=== PATIENT | female | born 1985 | race Hispanic/Latino ===

== ENCOUNTER 2016-10-08 09:38 | Emergency (ER) | payer SELFPAY ==
[2016-10-08 10:14] VITALS: BP 104/68
[2016-10-08 10:47] LABS: Basophils % (Auto) 0.8 % (0.0-1.8); Hematocrit 34.8 % (30.3-42.9); Hemoglobin 11.4 gm/dl (10.1-14.3); Mean Corpuscular HGB Conc 33 % (30-34); Mean Corpuscular Volume 79 fl (79-97); Platelet Count 421 K/mm3 (140-440); Red Blood Count 4.42 M/mm3 (3.65-5.03); Red Cell Distribution Width 17.6 % (13.2-15.2); White Blood Count 12.6 K/mm3 (4.5-11.0)
[2016-10-08 10:59] LABS: Mean Corpuscular Hemoglobin 26 pg (28-32)
[2016-10-08 11:13] LABS: Alanine Aminotransferase 9 units/L (7-56); Albumin 3.9 g/dL (3.9-5); Albumin/Globulin Ratio 1.3 %; Alkaline Phosphatase 60 units/L (35-129); Anion Gap 20 mmol/L; BUN/Creatinine Ratio 7.14; Bilirubin,Total 0.3 mg/dL (0.1-1.2); Blood Urea Nitrogen 5 mg/dL (7-17); Calcium 6.4 mg/dL (8.4-10.2); Carbon Dioxide 23 mmol/L (22-30); Chloride 102.1 mmol/L (98-107); Glucose 84 mg/dL (65-100); Magnesium 1.9 mg/dL (1.7-2.3); Potassium 4.1 mmol/L (3.6-5.0); Sodium 141 mmol/L (137-145)
[2016-10-08 12:55] LABS: Bilirubin,Urine NEG (Negative); Blood,Urine NEG (Negative); Ketones,Urine TR mg/dL (Negative); Leukocyte Esterase,Urine TR (Negative); Mucus,Urine 3+ /HPF; Nitrite,Urine NEG (Negative); Urobilinogen,Urine < 2.0 mg/dL (<2.0)
--- NOTE | 2016-10-10 15:26 | ED Elopement Review ---
ED Pt Elopement review - Results review Lab results: Laboratory Tests 10/08/16 10/08/16 10/08/16 10:31 10:36 10:36 WBC 12.6 H RBC 4.42 Hgb 11.4 Hct 34.8 MCV 79 MCH 26 L MCHC 33 RDW 17.6 H Plt Count 421 Lymph % (Auto) 18.5 [place] % (Auto) 7.2 Eos % (Auto) 4.0 Baso % (Auto) 0.8 Lymph # 2.3 [place] # 0.9 H Eos # 0.5 H Baso # 0.1 Seg Neutrophils % 69.5 Seg Neutrophils # 8.8 H Sodium 141 Potassium 4.1 Chloride 102.1 Carbon Dioxide 23 Anion Gap 20 BUN 5 L Creatinine 0.7 Estimated GFR > 60 BUN/Creatinine Ratio 7.14 Glucose 84 Calcium 6.4 L Magnesium 1.9 Total Bilirubin 0.3 AST 15 ALT 9 Alkaline Phosphatase 60 Total Protein 7.0 Albumin 3.9 Albumin/Globulin Ratio 1.3 TSH Urine Color Yellow Urine Turbidity Cloudy Urine pH 5.0 Ur Specific [place] 1.021 Urine Protein 30 mg/dl Urine Glucose (UA) Neg Urine Ketones Tr Urine Blood Neg Urine Nitrite Neg Ur Reducing Substances Not Reportable Urine Bilirubin Neg Urine Ictotest Not Reportable Urine Urobilinogen < 2.0 Ur Leukocyte Esterase Tr Urine WBC (Auto) 10.0 H Urine RBC (Auto) 5.0 U Epithel Cells (Auto) 6.0 Urine Mucus 3+ Urine HCG, Qual Negative 10/08/16 10:36 WBC RBC Hgb Hct MCV MCH MCHC RDW Plt Count Lymph % (Auto) [place] % (Auto) Eos % (Auto) Baso % (Auto) Lymph # [place] # Eos # Baso # Seg Neutrophils % Seg Neutrophils # Sodium Potassium Chloride Carbon Dioxide Anion Gap BUN Creatinine Estimated GFR BUN/Creatinine Ratio Glucose Calcium Magnesium Total Bilirubin AST ALT Alkaline Phosphatase Total Protein Albumin Albumin/Globulin Ratio TSH 40.920 H Urine Color Urine Turbidity Urine pH Ur Specific [place] Urine Protein Urine Glucose (UA) Urine Ketones Urine Blood Urine Nitrite Ur Reducing Substances Urine Bilirubin Urine Ictotest Urine Urobilinogen Ur Leukocyte Esterase Urine WBC (Auto) Urine RBC (Auto) U Epithel Cells (Auto) Urine Mucus Urine HCG, Qual - Call Back decision Pt Call Back Decision: Pt to F/U with PMD
== END 2016-10-08 15:40 | disposition left against medical advice (07) ==
LOC: ED 09:38
DX: R42 Dizziness and giddiness (principal); R55 Syncope and collapse; Z87.891 Personal history of nicotine dependence; Z53.21 Procedure and treatment not carried out due to patient leaving prior to being seen by health care provider
CPT/HCPCS: 36415; 80053; 81001; 81025; 83735; 84443; 85025; 93005; 93010

== ENCOUNTER 2016-10-14 00:18 | Emergency (ER) | payer SELFPAY ==
[2016-10-14] MEDS ORDERED: MAGNESIUM SULFATE 2GM/50ML 2 GM/50 ML BAG IV ONE (01:29)
[2016-10-14 01:39] LABS: Basophils % (Auto) 1.4 % (0.0-1.8); Eosinophils % (Auto) 4.2 % (0.0-4.3); Hematocrit 31.6 % (30.3-42.9); Hemoglobin 10.5 gm/dl (10.1-14.3); Mean Corpuscular HGB Conc 33 % (30-34); Mean Corpuscular Hemoglobin 26 pg (28-32); Mean Corpuscular Volume 78 fl (79-97); Platelet Count 453 K/mm3 (140-440); Red Blood Count 4.06 M/mm3 (3.65-5.03); Red Cell Distribution Width 17.3 % (13.2-15.2); White Blood Count 8.1 K/mm3 (4.5-11.0)
[2016-10-14 02:29] LABS: BUN/Creatinine Ratio 6.25; Blood Urea Nitrogen 5 mg/dL (7-17); Carbon Dioxide 25 mmol/L (22-30); Glucose 102 mg/dL (65-100)
[2016-10-14 02:30] LABS: Anion Gap 19 mmol/L; Chloride 97.9 mmol/L (98-107); Potassium 3.6 mmol/L (3.6-5.0); Sodium 138 mmol/L (137-145)
--- NOTE | 2016-10-14 03:05 | Emergency Department Report ---
ED Abdominal Pain HPI - General Chief Complaint: Chest Pain Stated Complaint: RIB PAIN/DIZZINESS/FAINTING Time Seen by Provider: 10/14/16 01:27 Source: patient Mode of arrival: Ambulatory Limitations: No Limitations - History of Present Illness Initial Comments: pt is a 31-year-old female with a history of hypothyroidism who presents to the ER today with multiple complaints of chest pain, left upper quadrant abdominal pain, and general feeling unwell. Patient reports she usually feels this when she has not been taking her Synthroid. Patient has not taking her Synthroid in the weeks due to insurance and lack of primary care. Reports her dose is 200mcg daily. Otherwise no fevers, chills, nausea, vomiting, travel, trauma, or sick contacts - Related Data Home Medications Medication Instructions Recorded Confirmed Last Taken Calcium Carbonate [ Calcium 2 tab PO BID PRN 05/18/16 10/14/16 05/16/16 Elemental 600 mg] Previous Rx's Medication Instructions Recorded Last Taken Type Levothyroxine [Synthroid] 200 mcg PO QDAY #30 tablet 10/14/16 Unknown Rx Allergies Allergy/AdvReac Type Severity Reaction Status Date / Time No Known Allergies Allergy Verified 11/28/15 11:08 ED Review of Systems ROS: Stated complaint: RIB PAIN/DIZZINESS/FAINTING Other details as noted in HPI Comment: All other systems reviewed and negative ED Past Medical Hx - Past Medical History Previous Medical History?: Yes Additional medical history: calcium deficiency, Gall bladder disease, hypothyroidism - Surgical History Past Surgical History?: Yes Additional Surgical History: , Parathyroidectomy THYROIDECTOMY - Social History Smoking Status: Never Smoker Substance Use Type: None - Medications Home Medications: Home Medications Medication Instructions Recorded Confirmed Last Taken Type Calcium Carbonate [ Calcium 2 tab PO BID PRN 05/18/16 10/14/16 05/16/16 History Elemental 600 mg] Levothyroxine [Synthroid] 200 mcg PO QDAY #30 tablet 10/14/16 Unknown Rx ED Physical Exam - General Limitations: No Limitations General appearance: alert, in no apparent distress - Head Head exam: Present: atraumatic, normocephalic - Eye Eye exam: Present: normal appearance - ENT ENT exam: Present: normal exam, mucous membranes moist - Neck Neck exam: Present: normal inspection - Respiratory Respiratory exam: Present: normal lung sounds bilaterally. Absent: respiratory distress, wheezes, rales - Cardiovascular Cardiovascular Exam: Present: regular rate, normal rhythm. Absent: irregular rhythm, systolic murmur, diastolic murmur, rubs, gallop - GI/Abdominal GI/Abdominal exam: Present: soft, tenderness (mild LUQ), normal bowel sounds. Absent: distended, guarding, rebound, rigid, organomegaly, pulsatile mass, hernia - Extremities Exam Extremities exam: Present: normal inspection - Back Exam Back exam: Present: normal inspection - Neurological Exam Neurological exam: Present: alert, oriented X3 - Psychiatric Psychiatric exam: Present: normal affect, normal mood - Skin Skin exam: Present: warm, dry, intact, normal color. Absent: rash ED Course Vital Signs 10/14/16 10/14/16 10/14/16 00:52 03:08 04:19 Temperature 98.7 F 98.6 F Pulse Rate 101 H 72 Respiratory 18 22 16 Rate Blood Pressure 117/73 Blood Pressure 98/64 [Left] O2 Sat by Pulse 100 96 97 Oximetry ED Medical Decision Making - Lab Data Result diagrams: 10/14/16 01:25 10/14/16 01:25 - EKG Data -: EKG Interpreted by Me (00:44) EKG shows normal: sinus rhythm, axis (normal axis), intervals (QTC 531 ms), QRS complexes (no LVH), ST-T waves (no ST changes) Rate: normal (E 7 bpm) - Medical Decision Making Given patient's QTc 521 ms, ordered magnesium sulfate 2 g IV piggyback 1 dose. Patient denies any medications or drug use Critical care attestation.: If time is entered above; I have spent that time in minutes in the direct care of this critically ill patient, excluding procedure time. ED Disposition Clinical Impression: Hypothyroidism, Weakness, Hypocalcemia Disposition: DISCHARGED TO HOME OR SELFCARE Is pt being admited?: No Condition: Stable Instructions: Hypothyroidism (ED), Hypocalcemia (ED), Weakness (ED) Prescriptions: Levothyroxine [Synthroid] 200 mcg PO QDAY #30 tablet Referrals: PRIMARY CARE, [Primary Care Provider] - 3-5 Days
[2016-10-14] MEDS ORDERED: CALCIUM GLUCONATE 2,000 MG in NACL 0.9% 100 ML IV ONE (04:00)
[2016-10-14 07:13] VITALS: BP 98/66
== END 2016-10-14 07:13 | disposition home or self-care (01) ==
LOC: ED 00:18
DX: E03.9 Hypothyroidism, unspecified (principal); R53.1 Weakness; E83.51 Hypocalcemia; Z90.89 Acquired absence of other organs
CPT/HCPCS: 36415; 80048; 81025; 83735; 84439; 84443; 84484; 85025; 85379; 93005; 93010; 96365; 96367; 99284; J0610; J3475

== ENCOUNTER 2016-11-11 01:42 | Emergency (ER) | payer SELFPAY ==
[2016-11-11 02:51] LABS: Basophils % (Auto) 0.8 % (0.0-1.8); Eosinophils % (Auto) 2.1 % (0.0-4.3); Hematocrit 33.4 % (30.3-42.9); Hemoglobin 10.9 gm/dl (10.1-14.3); Mean Corpuscular HGB Conc 33 % (30-34); Mean Corpuscular Volume 78 fl (79-97); Platelet Count 597 K/mm3 (140-440); Red Blood Count 4.31 M/mm3 (3.65-5.03); White Blood Count 13.5 K/mm3 (4.5-11.0)
[2016-11-11 03:09] LABS: Alanine Aminotransferase 11 units/L (7-56); Albumin 3.9 g/dL (3.9-5); Albumin/Globulin Ratio 1.2 %; Alkaline Phosphatase 83 units/L (35-129); Anion Gap 24 mmol/L; Blood Urea Nitrogen 6 mg/dL (7-17); Carbon Dioxide 22 mmol/L (22-30); Chloride 97.3 mmol/L (98-107); Glucose 95 mg/dL (65-100); Potassium 3.6 mmol/L (3.6-5.0); Sodium 140 mmol/L (137-145); Total Protein 7.2 g/dL (6.3-8.2)
[2016-11-11 03:10] LABS: Mean Corpuscular Hemoglobin 25 pg (28-32)
[2016-11-11 03:19] LABS: Calcium 5.9 mg/dL (8.4-10.2)
[2016-11-11 04:48] LABS: Albumin 3.8 g/dL (3.9-5); Albumin/Globulin Ratio 1.1 %; Bilirubin,Direct 0.2 mg/dL (0-0.2); Bilirubin,Total 0.2 mg/dL (0.1-1.2); Total Protein 7.3 g/dL (6.3-8.2)
[2016-11-11 05:17] LABS: Bilirubin,Urine Negative (Negative); Blood,Urine Large (Negative); Ketones,Urine Negative (Negative); Leukocyte Esterase,Urine Large (Negative); Nitrite,Urine Negative (Negative); Protein,Urine <15 mg/dL mg/dL (Negative); Urobilinogen,Urine < 0.2 mg/dL (<2.0)
[2016-11-11 05:18] LABS: Bacteria,Urine 1+ /HPF (Negative)
[2016-11-11] MEDS ORDERED: NORCO 5/325 PO ONE (06:56)
--- NOTE | 2016-11-11 07:00 | Emergency Department Report ---
HPI - General Chief Complaint: Abdominal Pain Time Seen by Provider: 11/11/16 06:14 - HPI HPI: 31-year-old female presents to the emergency department, dropped off by a friend, with complaint of a 2 day history of left lower quadrant sharp abdominal pain. It is intermittent and the intensity waxes and wanes. Currently it is about 5 out of 10 in intensity. It is associated with some nausea without vomiting and she denies any fever. She does not take anything for symptoms prior to presentation. She does not have any primary care doctor. She denies any dysuria, vaginal bleeding or discharge. She has a past medical history of hypothyroidism secondary to thyroidectomy and parathyroidectomy and therefore a subsequent calcium deficiency. No recent travel or sick contacts at home. There are no known aggravating or alleviating factors. ED Past Medical Hx - Past Medical History Previous Medical History?: Yes Additional medical history: calcium deficiency, Gall bladder disease, hypothyroidism - Surgical History Past Surgical History?: Yes Additional Surgical History: , Parathyroidectomy THYROIDECTOMY - Social History Smoking Status: Never Smoker Substance Use Type: None - Medications Home Medications: Home Medications Medication Instructions Recorded Confirmed Last Taken Type Calcium Carbonate [ Calcium 2 tab PO BID PRN 05/18/16 11/11/16 05/16/16 History Elemental 600 mg] Levothyroxine [Synthroid] 200 mcg PO QDAY #30 tablet 10/14/16 11/11/16 Unknown Rx HYDROcodone/APAP 5-325 [[place] 1 each PO Q6HR PRN #10 tablet 11/11/16 Unknown Rx 5/325] ED Review of Systems ROS: Stated complaint: DIZZINESS/LFT SIDE PAIN/NAUSEA Other details as noted in HPI Comment: All other systems reviewed and negative Constitutional: denies: chills, fever Eyes: denies: eye pain, eye discharge, vision change ENT: denies: ear pain, throat pain Respiratory: denies: cough, shortness of breath, wheezing Cardiovascular: denies: chest pain, palpitations Gastrointestinal: abdominal pain, nausea. denies: vomiting, diarrhea Genitourinary: denies: urgency, dysuria, discharge Musculoskeletal: denies: back pain, joint swelling, arthralgia Skin: denies: rash, lesions Neurological: denies: headache, weakness, paresthesias Physical Exam - Physical Exam Vital Signs: Vital Signs 11/11/16 11/11/16 11/11/16 01:45 01:50 04:44 Temperature 98.4 F 98.4 F Pulse Rate 108 H 108 H 87 Respiratory 20 20 21 Rate Blood Pressure 107/79 Blood Pressure 107/79 [Right] O2 Sat by Pulse 97 97 99 Oximetry 11/11/16 11/11/16 11/11/16 05:00 05:30 06:00 Temperature Pulse Rate 87 90 81 Respiratory 20 15 18 Rate Blood Pressure 109/67 100/62 104/51 Blood Pressure [Right] O2 Sat by Pulse 99 97 96 Oximetry Physical Exam: GENERAL: The patient is well-developed well-nourished. HEENT: Normocephalic. Atraumatic. Extraocular motions are intact. Patient has moist mucous membranes. Pupils equal reactive to light bilaterally. NECK: Supple. Trachea is midline. CHEST/LUNGS: Clear to auscultation. There is no respiratory distress noted. HEART/CARDIOVASCULAR: Regular. There is no tachycardia. There is no gallop rub or murmur. ABDOMEN: Abdomen is soft. There is left lower quadrant tenderness to palpation. No guarding or rebound tenderness. Patient has normal bowel sounds. There is no abdominal distention. SKIN: There is no rash. There is no edema. There is no diaphoresis. NEURO: The patient is awake, alert, and oriented. The patient is cooperative. The patient has no focal neurologic deficits. The patient has normal speech. MUSCULOSKELETAL: There is no tenderness or deformity. There is no limitation range of motion. There is no evidence of acute injury. ED Course Vital Signs 11/11/16 11/11/16 11/11/16 01:45 01:50 04:44 Temperature 98.4 F 98.4 F Pulse Rate 108 H 108 H 87 Respiratory 20 20 21 Rate Blood Pressure 107/79 Blood Pressure 107/79 [Right] O2 Sat by Pulse 97 97 99 Oximetry 11/11/16 11/11/16 11/11/16 05:00 05:30 06:00 Temperature Pulse Rate 87 90 81 Respiratory 20 15 18 Rate Blood Pressure 109/67 100/62 104/51 Blood Pressure [Right] O2 Sat by Pulse 99 97 96 Oximetry - Pulse Oximetry Interpretation Digit-Finger Initial Pulse Oximetry Readin O2 Sat by Pulse Oximetry: 99 Actions Taken: none ED Medical Decision Making - Lab Data Result diagrams: 11/11/16 02:18 11/11/16 02:18 - Radiology Data Radiology results: report reviewed, image reviewed interpreted by me: Abdominal x-ray shows nonspecific nonobstructive bowel gas. Pelvic ultrasound does not show any ovarian torsion or any significant abnormalities. CT of the abdomen and pelvis with IV contrast is a normal examination without any acute abnormalities. - Medical Decision Making 31-year-old female presents with 2 days of some lower left quadrant abdominal pain and while in the emergency department she complains that starting to move towards the pelvis. Labs are unremarkable do not show any etiology of the patient's symptoms. She is not . X-ray does not show any acute process. She had a transvaginal/pelvic ultrasound with Doppler and a CT of the abdomen and pelvis with IV contrast and neither showed any acute process. Vital signs stable throughout her ED course. She was given referrals for primary care and [facility]. She will return to the ER with any worsening of her symptoms or any acute distress. - Differential Diagnosis fibroids, torsion, , UTI, colitis Critical Care Time: No Critical care attestation.: If time is entered above; I have spent that time in minutes in the direct care of this critically ill patient, excluding procedure time. ED Disposition Clinical Impression: Pelvic pain, Hypocalcemia Abdominal pain Qualifiers: Abdominal location: left lower quadrant Qualified Code(s): R10.32 - Left lower quadrant pain Disposition: DISCHARGED TO HOME OR SELFCARE Is pt being admited?: No Condition: Stable Instructions: Hypocalcemia (ED), Abdominal Pain (ED) Additional Instructions: Please follow-up with a primary care doctor and [facility] in the near future. Return to the emergency department with any worsening of your symptoms or any acute distress. You've been prescribed a medication that is sedating. Therefore this medication cannot be mixed with alcohol, or taken prior to driving, working, or being responsible for children. Prescriptions: HYDROcodone/APAP 5-325 [[place] 5/325] 1 each PO Q6HR PRN #10 tablet PRN Reason: Pain Referrals: PRIMARY CAREMD [Primary Care Provider] - 3-5 Days [facility] [Outside] - 3-5 Days [facility] [Provider Group] - 3-5 Days [facility] [Provider Group] - 3-5 Days Time of Disposition: 11:26
[2016-11-11] MEDS ORDERED: NACL ONE (08:03)
--- NOTE | 2016-11-11 08:15 | XRay Report ---
ABDOMEN RADIOGRAPHS INDICATION: Abdominal, bilateral flank pain for 3 days, more on the left. Nausea. COMPARISON: None similar. FINDINGS: Frontal abdominal radiographs demonstrate nonobstructive bowel gas pattern. Ingested contents/debris in the stomach. No focal suspicious calcifications, pneumatosis or pneumoperitoneum. Few small pelvic phleboliths. Clear visualized lung bases. Mild degenerative lumbar spurring. CONCLUSION: No acute abdominal radiographic abnormality, as described. Thank you for the opportunity to participate in this patient's care.
--- NOTE | 2016-11-11 08:50 | Cat Scan Report ---
CT ABDOMEN AND PELVIS WITH CONTRAST INDICATION: Flank, LLQ pain. COMPARISON: Correlated to relevant images from 05/18/2016 and 02/26/2015 CTs. FINDINGS: Abdomen and pelvis CT performed following intravenous administration of 100 cc of Omnipaque 300. LUNG BASES: Nonspecific distal esophageal wall prominence/thickening, not excluded for gastroesophageal reflux and/or hiatal hernia, amongst others. ABDOMEN: Similar to prior exams, mild pericholecystic fluid/edema-like hypodensity again noted. Tiny calcifications within the gallbladder as on axial series 2, images 97-104 not excluded for minimal cholelithiasis and/or sludge. Indeterminate 6 mm peripheral right hepatic hypodensity towards the dome posteriorly on axial image 55. Liver, spleen, pancreas, adrenals, nonaneurysmal abdominal aorta, IVC and kidneys otherwise appear within normal limits bilaterally without hydronephrosis, ascites or size significant adenopathy. Nonopacified GI tract evaluation limited, though grossly nonobstructive. Normal appendix. Mild ascending colon stool. PELVIS: Uterus, adnexa/ovaries, urinary bladder and the rectosigmoid demonstrate physiologic CT appearance. No free fluid or significant adenopathy. Mild bony degenerative changes, including lower thoracic degenerative spurring and few endplate Schmorl's nodes. CONCLUSION: No CT explanation for patient's left sided pain with few incidental findings, including gallbladder CT appearance unchanged dating back to February 2015 with subtle cholelithiasis/gallbladder sludge suspected, as described. Ultrasound may help further confirm, if warranted. Thank you for the opportunity to participate in this patient's care.
[2016-11-11 09:35] VITALS: BP 108/70
--- NOTE | 2016-11-11 11:09 | Ultrasound Report ---
ULTRASOUND PELVIS DUPLEX DOPPLER COMPLETE - TRANSABDOMINAL AND TRANSVAGINAL: INDICATION: Pelvic/LLQ pain for 2 days. COMPARISON: CT from earlier today. FINDINGS: Transabdominal and transvaginal pelvic sonography with Doppler demonstrates a normal, 9.9 x 4.5 x 4.5 cm anteverted uterus. Endometrial thickness estimated at 3 mm, endovaginal image 4. Few small nabothian cysts. No significant free fluid. Both ovaries demonstrate preserved blood flow. Unremarkable right ovary measures 2.4 x 1.6 x 2.3 cm. Left ovary is 4.1 x 1.6 x 3 cm with small follicular cysts, larger approximately 1.6 x 1 cm, endovaginal image 26. CONCLUSION: Physiologic pelvic sonogram, as described. Thank you for the opportunity to participate in this patient's care.
== END 2016-11-11 12:01 | disposition home or self-care (01) ==
LOC: ED 01:42
DX: R10.2 Pelvic and perineal pain (principal); R10.32 Left lower quadrant pain; E83.51 Hypocalcemia; E03.9 Hypothyroidism, unspecified; Z90.89 Acquired absence of other organs
CPT/HCPCS: 36415; 74020; 74177; 76830; 80053; 80074; 81001; 81025; 83735; 85025; 93975; 99285; Q9967

== ENCOUNTER 2017-01-05 17:45 | Emergency (ER) | payer BC ==
[2017-01-05 17:57] VITALS: BP 130/79
[2017-01-05 18:25] LABS: Basophils % (Auto) 0.8 % (0.0-1.8); Eosinophils % (Auto) 3.4 % (0.0-4.3); Hematocrit 34.7 % (30.3-42.9); Hemoglobin 10.9 gm/dl (10.1-14.3); Mean Corpuscular HGB Conc 32 % (30-34); Mean Corpuscular Volume 75 fl (79-97); Platelet Count 482 K/mm3 (140-440); Red Blood Count 4.65 M/mm3 (3.65-5.03); Red Cell Distribution Width 17.6 % (13.2-15.2); White Blood Count 13.1 K/mm3 (4.5-11.0)
[2017-01-05 18:31] LABS: Mean Corpuscular Hemoglobin 24 pg (28-32)
[2017-01-05 18:35] LABS: Alanine Aminotransferase 9 units/L (7-56); Albumin 3.9 g/dL (3.9-5); Albumin/Globulin Ratio 1.3 %; Alkaline Phosphatase 77 units/L (35-129); Anion Gap 20 mmol/L; BUN/Creatinine Ratio 7.14; Blood Urea Nitrogen 5 mg/dL (7-17); Calcium 6.7 mg/dL (8.4-10.2); Carbon Dioxide 24 mmol/L (22-30); Chloride 98.5 mmol/L (98-107); Glucose 74 mg/dL (65-100); Lipase 43 units/L (13-60); Potassium 4.2 mmol/L (3.6-5.0); Sodium 138 mmol/L (137-145)
[2017-01-05 19:45] LABS: Bilirubin,Urine NEG (Negative); Blood,Urine LG (Negative); Ketones,Urine TR mg/dL (Negative); Leukocyte Esterase,Urine SM (Negative); Mucus,Urine FEW /HPF; Nitrite,Urine NEG (Negative); Urobilinogen,Urine < 2.0 mg/dL (<2.0)
--- NOTE | 2017-01-05 22:16 | Emergency Department Report ---
HPI - General Chief Complaint: Urogenital-Female Time Seen by Provider: 01/05/17 21:47 - HPI HPI: Patient is a 31-year-old female presents ED complaining of low right-sided pelvic pain and some vaginal itching for the past 2 days. She states she has a history of kidney stones and thinks this might be related. Patient states she has unprotected intercourse about a week ago and is unsure if she got exposed to an STD. Patient states she got a Monistat today [id number] use it. Patient states vaginal itchiness as well as outside. She admits burning with urination. She states normal menstrual cycles and states she started spotting today and is unsure if it's her menstrual cycle She denies fevers/chills/nausea/vomiting/shortness of breath/chest pain. ED Past Medical Hx - Past Medical History Previous Medical History?: Yes Additional medical history: calcium deficiency, Gall bladder disease, hypothyroidism - Surgical History Past Surgical History?: Yes Additional Surgical History: , Parathyroidectomy THYROIDECTOMY - Social History Smoking Status: Current Every Day Smoker Substance Use Type: Prescribed - Medications Home Medications: Home Medications Medication Instructions Recorded Confirmed Last Taken Type Calcium Carbonate [ Calcium 2 tab PO BID PRN 05/18/16 11/11/16 05/16/16 History Elemental 600 mg] HYDROcodone/APAP 5-325 [[place] 1 each PO Q6HR PRN #10 tablet 11/11/16 Unknown Rx 5/325] Ibuprofen [Motrin 800 MG tab] 800 mg PO QHS #30 tablet 01/05/17 Unknown Rx Levothyroxine [Synthroid] 200 mcg PO QDAY #30 tablet 01/05/17 Unknown Rx Sulfamethoxazole/Trimethoprim 1 each PO BID #8 tablet 01/05/17 Unknown Rx [Bactrim DS TAB] metroNIDAZOLE [Flagyl TAB] 500 mg PO ONCE #4 tab 01/05/17 Unknown Rx ED Review of Systems ROS: Stated complaint: POSS BLADDER INFECT/KIDNEY STONE Other details as noted in HPI Constitutional: denies: chills, fever Eyes: denies: eye pain, eye discharge, vision change ENT: denies: ear pain, throat pain Respiratory: denies: cough, shortness of breath, wheezing Cardiovascular: denies: chest pain, palpitations Endocrine: no symptoms reported Gastrointestinal: denies: abdominal pain, nausea, diarrhea Genitourinary: denies: urgency, dysuria, discharge Musculoskeletal: denies: back pain, joint swelling, arthralgia Skin: denies: rash, lesions Neurological: denies: headache, weakness, paresthesias Psychiatric: denies: anxiety, depression Hematological/Lymphatic: denies: easy bleeding, easy bruising Physical Exam - Physical Exam Vital Signs: Vital Signs 01/05/17 17:51 Temperature 99.1 F Pulse Rate 87 Respiratory 20 Rate Blood Pressure 130/79 O2 Sat by Pulse 98 Oximetry Physical Exam: GENERAL: Alert and oriented x3, no apparent distress, Normal Gait, atraumatic. HEAD: Head is normocephalic and a-traumatic. EYES: Extra ocular muscles are intact. Pupils are equal, round, and reactive to light and accommodation. EARS: symetrical, atraumatic, non tender, ear canal clear and moderate cerumen, tympanic membrance non inflamed. gross auditory nml bilaterally. LUNGS: Symetrical with respiration, No wheezing, no rales or crackles, CTAB. HEART: S1, S2 present, regular rate and rhythm without murmur, no rubs, no gallops. Non tender to palpation ABDOMEN: No organomegaly was noted,Positive bowel sounds, soft, and non- distended. . Nontender to palpation on all Quadrants, NO CVA tenderness. GENITOURINARY: External genitalia without erythema, exudate or discharge. Vaginal vault is with moderate dark red bloody discharge consistent with dementia.. Cervix is of normal color without lesion. Cervical os is closed. Uterus is noted to be of normal size and nontender. No cervical motion tenderness. No masses are palpated. The adnexa are without masses or tenderness. Cultures collected for wet prep and G/C SKIN: Warm and dry, No lesions, No ulceration or induration present. ED Course Vital Signs 01/05/17 17:51 Temperature 99.1 F Pulse Rate 87 Respiratory 20 Rate Blood Pressure 130/79 O2 Sat by Pulse 98 Oximetry ED Medical Decision Making - Lab Data Result diagrams: 01/05/17 18:04 01/05/17 18:04 - Medical Decision Making 31-year-old female presents with STD exposure/UTI. ED course: Urinalysis and gonorrhea and Chlamydia cultures obtained. Urinalysis positive for leukorrhea Patient received 250 mg of Rocephin, azithromycin 1 g, Patient was sent home on Flagyl 2 g. Trial of Bactrim for 3 days for urinary tract infection Discussed with patient possible STD due to exposure. Discussed with patient findings and treatment Discussed prophylaxis treatment patient is to abstain from sex 7-10 days as treatment. Discussed patient partner knowledge and treatment. Discussed the follow-up with the health department for further STD testing. Patient's alert and oriented times 3. Vital signs are normal patient is in no acute Distress Critical care attestation.: If time is entered above; I have spent that time in minutes in the direct care of this critically ill patient, excluding procedure time. ED Disposition Clinical Impression: Exposure to STD UTI (urinary tract infection) Qualifiers: Urinary tract infection type: acute cystitis Hematuria presence: with hematuria Qualified Code(s): N30.01 - Acute cystitis with hematuria Disposition: TO HOME OR SELFCARE Is pt being admited?: No Does the pt Need Aspirin: No Condition: Stable Instructions: Cervicitis (ED), Sexually Transmitted Diseases (ED), Safe Sex (ED ), Urinary Tract Infection in Women (ED) Prescriptions: Ibuprofen [Motrin 800 MG tab] 800 mg PO QHS #30 tablet Levothyroxine [Synthroid] 200 mcg PO QDAY #30 tablet metroNIDAZOLE [Flagyl TAB] 500 mg PO ONCE #4 tab Sulfamethoxazole/Trimethoprim [Bactrim DS TAB] 1 each PO BID #8 tablet Referrals: PRIMARY MD ROSI [Primary Care Provider] - 3-5 Days CHANDLER CHAMPION MD [Referring] - 3-5 Days [facility] [Outside] - 3-5 Days [facility] [Outside] - 3-5 Days [facility] [Outside] - 3-5 Days Forms: Work/School Release Form(ED)
[2017-01-05] MEDS ORDERED: XYLOCAINE 1% MPF 5 mL INFILTRATI ONE (23:11)
[2017-01-05] MEDS ORDERED: ZITHROMAX PO ONE (23:11)
[2017-01-05] MEDS ORDERED: MOTRIN PO ONE (23:11)
[2017-01-05] MEDS ORDERED: ROCEPHIN IM ONE (23:11)
== END 2017-01-06 00:11 | disposition home or self-care (01) ==
LOC: ED 17:45
DX: N39.0 Urinary tract infection, site not specified (principal); E03.9 Hypothyroidism, unspecified; F17.210 Nicotine dependence, cigarettes, uncomplicated; Z20.2 Contact with and (suspected) exposure to infections with a predominantly sexual mode of transmission
CPT/HCPCS: 36415; 80053; 81001; 81025; 83690; 85025; 87210; 87591; 96372; 99283; J0696

== ENCOUNTER 2017-01-13 01:22 | Emergency (ER) | payer BC ==
[2017-01-13 05:43] VITALS: BP 120/78
[2017-01-13 07:06] LABS: Basophils % (Auto) 1.2 % (0.0-1.8); Eosinophils % (Auto) 6.4 % (0.0-4.3); Hemoglobin 11.6 gm/dl (10.1-14.3); Mean Corpuscular HGB Conc 32 % (30-34); Mean Corpuscular Volume 75 fl (79-97); Platelet Count 519 K/mm3 (140-440); Red Blood Count 4.82 M/mm3 (3.65-5.03); Red Cell Distribution Width 18.8 % (13.2-15.2); White Blood Count 7.6 K/mm3 (4.5-11.0)
[2017-01-13 07:07] LABS: Mean Corpuscular Hemoglobin 24 pg (28-32)
[2017-01-13 07:26] LABS: Alanine Aminotransferase 10 units/L (7-56); Albumin 4.3 g/dL (3.9-5); Albumin/Globulin Ratio 1.2 %; Alkaline Phosphatase 79 units/L (35-129); Anion Gap 17 mmol/L; BUN/Creatinine Ratio 11.42; Bilirubin,Total < 0.20 mg/dL (0.1-1.2); Blood Urea Nitrogen 8 mg/dL (7-17); Calcium 7.3 mg/dL (8.4-10.2); Carbon Dioxide 27 mmol/L (22-30); Glucose 91 mg/dL (65-100); Lipase 74 units/L (13-60); Potassium 4.3 mmol/L (3.6-5.0); Sodium 137 mmol/L (137-145)
== END 2017-01-13 06:43 | disposition left against medical advice (07) ==
LOC: ED 01:22
DX: R10.9 Unspecified abdominal pain (principal); Z53.21 Procedure and treatment not carried out due to patient leaving prior to being seen by health care provider
CPT/HCPCS: 36415; 80053; 83690; 84703; 85025

== ENCOUNTER 2017-08-16 22:39 | Emergency (ER) | payer BC ==
[2017-08-16 22:57] VITALS: BP 129/88
== END 2017-08-17 06:02 | disposition left against medical advice (07) ==
LOC: ED 22:39
DX: R42 Dizziness and giddiness (principal); Z53.21 Procedure and treatment not carried out due to patient leaving prior to being seen by health care provider

== ENCOUNTER 2017-11-09 09:17 | Emergency (ER) | payer BC ==
[2017-11-09] MEDS ORDERED: ASPIRIN PO ONE (09:40)
[2017-11-09 10:05] LABS: Basophils # (Auto) 0.1 K/mm3 (0.0-0.1); Basophils % (Auto) 1.7 % (0.0-1.8); Eosinophils # (Auto) 0.3 K/mm3 (0.0-0.4); Eosinophils % (Auto) 3.7 % (0.0-4.3); Hematocrit 32.9 % (30.3-42.9); Hemoglobin 11.1 gm/dl (10.1-14.3); Lymphocytes # (Auto) 2.5 K/mm3 (1.2-5.4); Lymphocytes % (Auto) 34.8 % (13.4-35.0); Mean Corpuscular HGB Conc 34 % (30-34); Mean Corpuscular Hemoglobin 26 pg (28-32); Mean Corpuscular Volume 77 fl (79-97); Monocytes # (Auto) 0.6 K/mm3 (0.0-0.8); Platelet Count 407 K/mm3 (140-440); Red Blood Count 4.25 M/mm3 (3.65-5.03); Red Cell Distribution Width 16.9 % (13.2-15.2)
[2017-11-09 10:20] LABS: BUN/Creatinine Ratio 7; Blood Urea Nitrogen 6 mg/dL (7-17); Calcium 6.5 mg/dL (8.4-10.2); Hemolysis Index 4
--- NOTE | 2017-11-09 13:49 | Emergency Department Report ---
ED General Adult HPI - General Chief complaint: Chest Pain Stated complaint: CHEST PAIN Time Seen by Provider: 11/09/17 13:23 Source: patient Mode of arrival: Ambulatory Limitations: No Limitations - History of Present Illness Initial comments: Patient presents to emergency department for left sided chest pain for the last 2 days. Patient describes the pain is all in nature with no radiation. Patient believes that her pain is secondary to her not having a Synthroid. Patient denies anything making the pain better or worse. Patient states last time she had a Synthroid was approximately 2 months ago but then she tells me she's been taking a friend's Synthroid. -: Sudden Location: chest Radiation: non-radiation Severity scale (0 -10): 2 Quality: aching Consistency: constant Improves with: none Worsens with: none Associated Symptoms: denies other symptoms Treatments Prior to Arrival: none - Related Data Previous Rx's Medication Instructions Recorded Last Taken Type Calcium Carbonate [Calcium] 3 tab PO TID #300 tablet 01/23/17 Unknown Rx Famotidine [Pepcid] 20 mg PO BID #60 tablet 01/23/17 Unknown Rx HYDROcodone/APAP 5-325 [[place] 1 each PO Q6HR PRN #20 tablet 01/23/17 Unknown Rx 5-325 mg TAB] Levothyroxine Sodium [Synthroid] 200 mcg PO QDAY #30 tablet 01/23/17 Unknown Rx Levothyroxine Sodium [Synthroid] 125 mcg PO DAILY #7 tablet 11/09/17 Unknown Rx Allergies Allergy/AdvReac Type Severity Reaction Status Date / Time No Known Allergies Allergy Verified 11/28/15 11:08 ED Review of Systems ROS: Stated complaint: CHEST PAIN Other details as noted in HPI Comment: All other systems reviewed and negative Constitutional: denies: chills, fever Eyes: denies: eye pain, eye discharge, vision change ENT: denies: ear pain, throat pain Respiratory: denies: cough, shortness of breath, wheezing Cardiovascular: denies: chest pain, palpitations Endocrine: no symptoms reported Gastrointestinal: denies: abdominal pain, nausea, diarrhea Genitourinary: denies: urgency, dysuria, discharge Musculoskeletal: denies: back pain, joint swelling, arthralgia Skin: denies: rash, lesions Neurological: denies: headache, weakness, paresthesias Psychiatric: denies: anxiety, depression Hematological/Lymphatic: denies: easy bleeding, easy bruising ED Past Medical Hx - Past Medical History Previous Medical History?: Yes Hx Congestive Heart Failure: No Hx Diabetes: No Hx Asthma: No Hx COPD: No Additional medical history: calcium deficiency, Gall bladder disease, hypothyroidism - Surgical History Past Surgical History?: Yes Additional Surgical History: , Parathyroidectomy THYROIDECTOMY - Social History Smoking Status: Former Smoker Substance Use Type: Prescribed - Medications Home Medications: Home Medications Medication Instructions Recorded Confirmed Last Taken Type Calcium Carbonate [Calcium] 3 tab PO TID #300 tablet 01/23/17 Unknown Rx Famotidine [Pepcid] 20 mg PO BID #60 tablet 01/23/17 Unknown Rx HYDROcodone/APAP 5-325 [[place] 1 each PO Q6HR PRN #20 tablet 01/23/17 Unknown Rx 5-325 mg TAB] Levothyroxine Sodium [Synthroid] 200 mcg PO QDAY #30 tablet 01/23/17 Unknown Rx Levothyroxine Sodium [Synthroid] 125 mcg PO DAILY #7 tablet 11/09/17 Unknown Rx ED Physical Exam - General Limitations: No Limitations General appearance: alert, in no apparent distress - Head Head exam: Present: atraumatic, normocephalic - Eye Eye exam: Present: normal appearance - ENT ENT exam: Present: mucous membranes moist - Neck Neck exam: Present: normal inspection - Respiratory Respiratory exam: Present: normal lung sounds bilaterally. Absent: respiratory distress - Cardiovascular Cardiovascular Exam: Present: regular rate, normal rhythm. Absent: systolic murmur, diastolic murmur, rubs, gallop - GI/Abdominal GI/Abdominal exam: Present: soft, normal bowel sounds - Extremities Exam Extremities exam: Present: normal inspection - Back Exam Back exam: Present: normal inspection - Neurological Exam Neurological exam: Present: alert, oriented X3, CN II-XII intact. Absent: motor sensory deficit - Psychiatric Psychiatric exam: Present: normal affect, normal mood - Skin Skin exam: Present: warm, dry, intact, normal color. Absent: rash ED Course Vital Signs 11/09/17 09:36 Temperature 98.8 F Pulse Rate 86 Respiratory 20 Rate Blood Pressure 118/79 O2 Sat by Pulse 99 Oximetry ED Medical Decision Making - Lab Data Result diagrams: 11/09/17 09:50 11/09/17 09:50 - EKG Data -: EKG Interpreted by Fl EKG shows normal: sinus rhythm Rate: normal - EKG Data Interpretation: no acute changes - Medical Decision Making Discussed results with patient and need for primary care follow-up. Patient will be given a prescription for Synthroid for 7 days. Critical care attestation.: If time is entered above; I have spent that time in minutes in the direct care of this critically ill patient, excluding procedure time. ED Disposition Clinical Impression: Nonspecific chest pain, Hypothyroidism Disposition: TO HOME OR SELFCARE Is pt being admited?: No Does the pt Need Aspirin: No Condition: Stable Instructions: Chest Pain (ED), Hypothyroidism (ED), Noncardiac Chest Pain (ED) Additional Instructions: Return if worse Prescriptions: Levothyroxine Sodium [Synthroid] 125 mcg PO DAILY #7 tablet Referrals: PRIMARY CARE, [Primary Care Provider] - 3-5 Days [facility] [Outside] - 3-5 Days [facility] [Outside] - 3-5 Days [facility] [Provider Group] - 3-5 Days Time of Disposition: 13:46
[2017-11-09 13:55] VITALS: BP 114/77
== END 2017-11-09 14:04 | disposition home or self-care (01) ==
LOC: ED 09:17
DX: R07.89 Other chest pain (principal); E03.9 Hypothyroidism, unspecified; Z87.891 Personal history of nicotine dependence
CPT/HCPCS: 36415; 80048; 84484; 85025; 93005; 93010; 99284

== ENCOUNTER 2017-12-10 06:55 | Emergency (ER) | payer BC ==
[2017-12-10 08:15] LABS: Basophils # (Auto) 0.1 K/mm3 (0.0-0.1); Basophils % (Auto) 1.5 % (0.0-1.8); Eosinophils # (Auto) 0.2 K/mm3 (0.0-0.4); Hematocrit 34.1 % (30.3-42.9); Hemoglobin 11.2 gm/dl (10.1-14.3); Lymphocytes # (Auto) 1.9 K/mm3 (1.2-5.4); Lymphocytes % (Auto) 31.4 % (13.4-35.0); Mean Corpuscular HGB Conc 33 % (30-34); Mean Corpuscular Volume 77 fl (79-97); Platelet Count 324 K/mm3 (140-440); Red Blood Count 4.41 M/mm3 (3.65-5.03); Red Cell Distribution Width 16.6 % (13.2-15.2)
[2017-12-10 08:24] LABS: BUN/Creatinine Ratio 8; Blood Urea Nitrogen 8 mg/dL (7-17); Calcium 6.8 mg/dL (8.4-10.2); Hemolysis Index 3
[2017-12-10 08:31] LABS: Mean Corpuscular Hemoglobin 25 pg (28-32)
[2017-12-10 09:15] LABS: Free T4 (Free Thyroxine) 0.23 ng/dL (0.76-1.46)
--- NOTE | 2017-12-10 14:00 | Emergency Department Report ---
ED General Adult HPI - General Chief complaint: Chest Pain Stated complaint: CP Time Seen by Provider: 12/10/17 13:25 Source: patient Mode of arrival: Ambulatory Limitations: No Limitations - History of Present Illness Initial comments: Left-sided chest pain that radiates from the back, history of thyroidectomy on replacement Synthroid has been out of the Synthroid for a month she also apparently has parathyroid problems and is on calcium replacement she is here for evaluation of a atypical left-sided chest pain that starts in the back it's been there constantly for 2 days. She denies recent travel she denies immobilization she denies cancer she denies control pills she denies family history of DVT PE denies any calf pain or swelling denies any cancer denies any shortness of breath denies sudden onset the symptoms are nonexertional as any hemoptysis no tearing pain no fever no cough admits noncompliance with her meds over a month hasn't followed up since her last visit here -: unknown Radiation: non-radiation Quality: sharp Consistency: intermittent Worsens with: none Associated Symptoms: denies other symptoms, malaise - Related Data Previous Rx's Medication Instructions Recorded Last Taken Type Calcium Carbonate [Calcium] 3 tab PO TID #300 tablet 01/23/17 Unknown Rx Famotidine [Pepcid] 20 mg PO BID #60 tablet 01/23/17 Unknown Rx HYDROcodone/APAP 5-325 [[place] 1 each PO Q6HR PRN #20 tablet 01/23/17 Unknown Rx 5-325 mg TAB] Levothyroxine Sodium [Synthroid] 125 mcg PO DAILY #7 tablet 11/09/17 Unknown Rx Levothyroxine Sodium [Synthroid] 200 mcg PO QDAY #30 tablet 12/10/17 Unknown Rx Allergies Allergy/AdvReac Type Severity Reaction Status Date / Time No Known Allergies Allergy Verified 11/28/15 11:08 ED Review of Systems ROS: Stated complaint: CP Other details as noted in HPI Comment: All other systems reviewed and negative Constitutional: weakness. denies: diaphoresis, fever, malaise Eyes: denies: eye discharge, vision change Cardiovascular: chest pain, palpitations. denies: dyspnea on exertion, orthopnea, edema, syncope, paroxysmal nocturnal dyspnea Endocrine: denies: excessive sweating, flushing, intolerance to cold, intolerance to heat Gastrointestinal: denies: abdominal pain, nausea, vomiting, diarrhea, constipation, hematemesis, melena, hematochezia Neurological: denies: headache, weakness, numbness, paresthesias, confusion, abnormal gait, vertigo ED Past Medical Hx - Past Medical History Previous Medical History?: Yes Hx Congestive Heart Failure: No Hx Diabetes: No Hx Asthma: No Hx COPD: No Additional medical history: calcium deficiency, Gall bladder disease, hypothyroidism - Surgical History Past Surgical History?: Yes Additional Surgical History: , Parathyroidectomy THYROIDECTOMY - Social History Smoking Status: Never Smoker Substance Use Type: None - Medications Home Medications: Home Medications Medication Instructions Recorded Confirmed Last Taken Type Calcium Carbonate [Calcium] 3 tab PO TID #300 tablet 01/23/17 Unknown Rx Famotidine [Pepcid] 20 mg PO BID #60 tablet 01/23/17 Unknown Rx HYDROcodone/APAP 5-325 [[place] 1 each PO Q6HR PRN #20 tablet 01/23/17 Unknown Rx 5-325 mg TAB] Levothyroxine Sodium [Synthroid] 125 mcg PO DAILY #7 tablet 11/09/17 Unknown Rx Levothyroxine Sodium [Synthroid] 200 mcg PO QDAY #30 tablet 12/10/17 Unknown Rx ED Physical Exam - General Limitations: No Limitations General appearance: alert, in no apparent distress, anxious - Head Head exam: Present: atraumatic, normocephalic - Eye Eye exam: Present: normal appearance, PERRL, EOMI - ENT ENT exam: Present: normal exam, normal orophraynx - Neck Neck exam: Present: normal inspection. Absent: tenderness, meningismus - Respiratory Respiratory exam: Present: normal lung sounds bilaterally. Absent: respiratory distress, wheezes, rales, rhonchi, stridor, chest wall tenderness, accessory muscle use, decreased breath sounds, prolonged expiratory - Cardiovascular Cardiovascular Exam: Present: regular rate, normal rhythm, other (os is equal bilaterally pulse) - GI/Abdominal GI/Abdominal exam: Present: soft. Absent: distended, tenderness, guarding, rebound, rigid, mass, pulsatile mass - Extremities Exam Extremities exam: Present: normal inspection, normal capillary refill. Absent: pedal edema, joint swelling, calf tenderness - Back Exam Back exam: Present: normal inspection. Absent: CVA tenderness (R), CVA tenderness (L), muscle spasm, paraspinal tenderness, vertebral tenderness, rash noted - Neurological Exam Neurological exam: Present: alert, oriented X3, CN II-XII intact. Absent: motor sensory deficit - Skin Skin exam: Present: warm, other (no rash tenderness left chest wall) ED Course Vital Signs 12/10/17 12/10/17 07:17 07:23 Temperature 98.7 F Pulse Rate 98 H Respiratory 18 Rate Blood Pressure 149/91 O2 Sat by Pulse 98 Oximetry ED Medical Decision Making - Lab Data Result diagrams: 12/10/17 07:42 12/10/17 07:42 - EKG Data -: EKG Interpreted by Me - EKG Data When compared to previous EKG there are: no significant change - Radiology Data Radiology results: report reviewed - Medical Decision Making Patient has atypical left-sided chest pain she is perk negative EKG is normal the troponin is negative. The chest x-ray is negative. This is consistent with atypical likely noncardiac chest pain she is stable for outpatient follow- up she is chronically hypo-calcium 8 with hypothyroid however she has a history of noncompliance for many months calcium is roughly baseline from previous she has no QTC prolongation we elected to replace the magnesium she will continue her outpatient calcium she'll be discharged for outpatient follow-up to restart Synthroid patient became angry when I told her this she apparently felt like we will possibly admit her however she does not meet inpatient criteria for admission she is stable with normal EKG and negative troponin and no signs of emergent cardiac process symptoms. The chronic and atypical she has noncompliance with chronic hypocalcemia which is well-tolerated now with normal QTC. As well as normal EKG and no signs of ischemic disease she is here for outpatient follow-up at this time is producing noted perk negative no signs of dissection Critical care attestation.: If time is entered above; I have spent that time in minutes in the direct care of this critically ill patient, excluding procedure time. ED Disposition Clinical Impression: Chest pain, Hypocalcemia, Hypoparathyroidism, Hypothyroidism Disposition: - TO HOME OR SELFCARE Is pt being admited?: No Condition: Stable Instructions: Chest Pain (ED), Hypocalcemia (ED), Hypothyroidism (ED) Additional Instructions: See the doctor listed her irregular doctor return immediately if new or alarming symptoms such as chest pain or muscle spasms will need to arrange outpatient follow-up U have chronic medical illnesses that are potentially life- threatening he will need to take your medicines as directed, 911 or return immediately if nor alarming symptoms Prescriptions: Levothyroxine Sodium [Synthroid] 200 mcg PO QDAY #30 tablet Referrals: PRIMARY CARE [Primary Care Provider] - 3-5 Days Time of Disposition: 15:26
--- NOTE | 2017-12-10 14:35 | XRay Report ---
FINAL REPORT EXAM: XR CHEST ROUTINE 2V HISTORY: cp TECHNIQUE: 2 view examination of the chest PRIORS: Chest CT 01/12/2017 FINDINGS: Limited examination due to prominent soft tissue attenuation. There is no visible pulmonary consolidation, pleural effusion, or pneumothorax. Cardiac silhouette size is normal without vascular congestion. No visible acute displaced fracture in the regional skeleton. IMPRESSION: No evidence of acute cardiopulmonary disease
[2017-12-10] MEDS ORDERED: MAGNESIUM SULFATE IV ONE (15:07)
[2017-12-10] MEDS ORDERED: MAGNESIUM SULFATE 1 GM in NACL 0.9% 50 ML IM ONE (16:00)
[2017-12-10] MEDS ORDERED: MAGNESIUM SULFATE 1 GM in NACL 0.9% 50 ML IV ONE (16:00)
[2017-12-10] MEDS ORDERED: MAGNESIUM SULFATE IM ONE (16:00)
[2017-12-10 16:24] VITALS: BP 113/78
== END 2017-12-10 16:24 | disposition home or self-care (01) ==
LOC: ED 06:55
DX: E20.9 Hypoparathyroidism, unspecified (principal)
CPT/HCPCS: 36415; 71046; 80048; 82040; 83690; 83735; 84439; 84443; 84484; 84703; 85025; 93005; 93010; 96372; 99284; J3475

== ENCOUNTER 2019-04-28 08:48 | Emergency (ER) | payer BC ==
--- NOTE | 2019-04-28 10:39 | Emergency Department Report ---
ED General Adult HPI - General Chief complaint: Neuro Symptoms/Deficit Stated complaint: RT SIDE HEAD/FACE NUMB/DIZZY Time Seen by Provider: 04/28/19 10:17 Source: patient Mode of arrival: Ambulatory Limitations: No Limitations - History of Present Illness Initial comments: 34-year-old female presents to the emergency room states that her righ t ear is ringing and feels like it's full. Patient states that she woke up this morning and she feels like her whole right side of her face is now more underwater. Patient denies any pain at this moment. Patient denies any neuro deficits. 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 Thyroidectomy. Patient reports that she supposed to be on levothyroxine but has been off of it for the last 3 months. Patient states that she takes calcium supplements of 1200 mg 2-3 times a day. Patient also reports that she takes magnesium 250 mg daily. Last menstrual period 04/16/2019. Past medical history of hyper-calcium area now with hypocalcemia. Surgical history thyroidectomy and parathyroidectomy. She does endorse that she has gallbladder issues but no abdominal pain nausea vomiting at this time. -: This morning Location: face (right side) Severity scale (0 -10): 0 Treatments Prior to Arrival: none - Related Data Previous Rx's Medication Instructions Recorded Last Taken Type Famotidine [Pepcid] 20 mg PO BID #60 tablet 01/23/17 Unknown Rx HYDROcodone/APAP 5-325 [[place] 1 each PO Q6HR PRN #20 tablet 01/23/17 Unknown Rx 5-325 mg TAB] Levothyroxine Sodium [Synthroid] 125 mcg PO DAILY #7 tablet 11/09/17 Unknown Rx Levothyroxine Sodium [Synthroid] 200 mcg PO QDAY #30 tablet 12/10/17 Unknown Rx Calcium Carbonate [Calcium 600MG 3 tab PO TID #300 tablet 04/28/19 Unknown Rx TAB] Levothyroxine [Synthroid] 25 mcg PO QAM #30 tablet 04/28/19 Unknown Rx Levothyroxine [Synthroid] 150 mcg PO QAM #30 tablet 04/28/19 Unknown Rx Allergies Allergy/AdvReac Type Severity Reaction Status Date / Time No Known Allergies Allergy Verified 11/28/15 11:08 ED Review of Systems ROS: Stated complaint: RT SIDE HEAD/FACE NUMB/DIZZY Other details as noted in HPI Comment: All other systems reviewed and negative ED Past Medical Hx - Past Medical History Previous Medical History?: Yes Hx Congestive Heart Failure: No Hx Diabetes: No Hx Asthma: No Hx COPD: No Additional medical history: Thyroid tumor - Surgical History Past Surgical History?: Yes Additional Surgical History: , Parathyroidectomy THYROIDECTOMY - Social History Smoking Status: Never Smoker Substance Use Type: None - Medications Home Medications: Home Medications Medication Instructions Recorded Confirmed Last Taken Type Famotidine [Pepcid] 20 mg PO BID #60 tablet 01/23/17 Unknown Rx HYDROcodone/APAP 5-325 [[place] 1 each PO Q6HR PRN #20 tablet 01/23/17 Unknown Rx 5-325 mg TAB] Levothyroxine Sodium [Synthroid] 125 mcg PO DAILY #7 tablet 11/09/17 Unknown Rx Levothyroxine Sodium [Synthroid] 200 mcg PO QDAY #30 tablet 12/10/17 Unknown Rx Calcium Carbonate [Calcium 600MG 3 tab PO TID #300 tablet 04/28/19 Unknown Rx TAB] Levothyroxine [Synthroid] 25 mcg PO QAM #30 tablet 04/28/19 Unknown Rx Levothyroxine [Synthroid] 150 mcg PO QAM #30 tablet 04/28/19 Unknown Rx ED Physical Exam - General Limitations: No Limitations General appearance: alert, in no apparent distress - Head Head exam: Present: atraumatic, normocephalic - Eye Eye exam: Present: normal appearance - ENT ENT exam: Present: mucous membranes moist - Neck Neck exam: Present: normal inspection, full ROM. Absent: tenderness - Respiratory Respiratory exam: Present: normal lung sounds bilaterally. Absent: respiratory distress - Cardiovascular Cardiovascular Exam: Present: regular rate, normal rhythm. Absent: systolic murmur, diastolic murmur, rubs, gallop - GI/Abdominal GI/Abdominal exam: Present: soft, normal bowel sounds. Absent: distended, tenderness - Extremities Exam Extremities exam: Present: normal inspection, full ROM. Absent: tenderness - Back Exam Back exam: Present: normal inspection, full ROM - Expanded Neurological Exam Expanded Cranial nerves: EOM's Intact: Normal, Gag Reflex: Normal, Tongue Deviation: Normal, Nystagmus: Normal, Facial Sensation: Normal, Facial Palsy with Forehead Movement: Normal, Facial Palsy without Forehead Movement: Normal Cerebellar function: Finger to Nose: Normal, Heel to Leon: Normal, Romberg: Normal Upper motor neuron: Josh Neglect: Normal, Pronator Drift: Normal, Babinski Sign: Normal, Sensory Extinction: Normal Sensory exam: Upper Extremity Light Touch: Normal, Upper Extremity Pin Prick: Normal, Upper Extremity Temperature: Normal, UE 2 Point Discrimination: Normal, Lower Extremity Light Touch: Normal, Lower Extremity Pin Prick: Normal, Lower Extremity Temperature: Normal, LE 2 Point Discrimination: Normal Motor strength exam: RUE: 4, LUE: 4, RLE: 4, LLE: 4 Best Eye Response ([place]): (4) open spontaneously Best Motor Response ([place]): (6) obeys commands Best Verbal Response ([place]): (5) oriented [place] Total: 15 - Psychiatric Psychiatric exam: Present: normal affect, normal mood - Skin Skin exam: Present: warm, dry, intact, normal color. Absent: rash ED Course Vital Signs 04/28/19 04/28/19 04/28/19 09:07 10:24 12:03 Temperature 97.9 F 98 F Pulse Rate 80 91 H 79 Respiratory 16 15 Rate Blood Pressure 129/89 Blood Pressure 117/91 [Left] O2 Sat by Pulse 100 96 Oximetry - Reevaluation(s) Reevaluation #1: 04/28/19 12:05 Patient's calcium 7.3 order hepatic panel and calcium gluconate 1000 mg IV. ED Medical Decision Making - Lab Data Result diagrams: 04/28/19 11:06 04/28/19 11:06 - Medical Decision Making 34-year-old female presents to the emergency room states that her r ight ear is ringing and feels like it's full. Patient states that she woke up this morning and she feels like her whole right side of her face is now more underwater. Patient denies any pain at this moment. Patient denies any neuro deficits. 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 Thyroidectomy. Patient reports that she supposed to be on levothyroxine but has been off of it for the last 3 months. Patient states that she takes calcium supplements of 1200 mg 2-3 times a day. Patient also reports that she takes magnesium 250 mg daily. Last menstrual period 04/16/2019. Past medical history of hyper-calcium area now with hypocalcemia. Surgical history thyroidectomy and parathyroidectomy. She does endorse that she has gallbladder issues but no abdominal pain nausea vomiting at this time. Critical care attestation.: If time is entered above; I have spent that time in minutes in the direct care of this critically ill patient, excluding procedure time. ED Disposition Clinical Impression: Hypothyroidism, Hypocalcemia Disposition: DC-01 TO HOME OR SELFCARE Is pt being admited?: No Does the pt Need Aspirin: No Condition: Stable Instructions: Hypothyroidism (ED), Hypocalcemia (ED) Prescriptions: Calcium Carbonate [Calcium 600MG TAB] 3 tab PO TID #300 tablet Levothyroxine [Synthroid] 150 mcg PO QAM #30 tablet Levothyroxine [Synthroid] 25 mcg PO QAM #30 tablet Referrals: PRIMARY CARE, [Primary Care Provider] - 3-5 Days TILA DELA CRUZ MD [Referring] - 3-5 Days PEGGY MUNOZ MD [Staff Physician] - 3-5 Days XENIA XIAO MD [Referring] - 3-5 Days
[2019-04-28 11:30] LABS: Hematocrit 36.1 % (30.3-42.9); Hemoglobin 12.1 gm/dl (10.1-14.3); Mean Corpuscular HGB Conc 34 % (30-34); Mean Corpuscular Volume 83 fl (79-97); Platelet Count 309 K/mm3 (140-440); Red Blood Count 4.35 M/mm3 (3.65-5.03); Red Cell Distribution Width 15.9 % (13.2-15.2)
[2019-04-28 11:52] LABS: BUN/Creatinine Ratio 5; Blood Urea Nitrogen 5 mg/dL (7-17); Calcium 7.3 mg/dL (8.4-10.2); Hemolysis Index 5
[2019-04-28 12:26] LABS: Alanine Aminotransferase 8 units/L (7-56); Bilirubin,Direct < 0.2 mg/dL (0-0.2)
[2019-04-28 12:27] LABS: Albumin 4.6 g/dL (3.9-5)
[2019-04-28] MEDS ORDERED: CALCIUM GLUCONATE 1,000 MG in SODIUM CHLORIDE 0.9% 100 ML IV ONE (13:04)
[2019-04-28 15:08] VITALS: BP 102/71
== END 2019-04-28 14:47 | disposition home or self-care (01) ==
LOC: ED 08:48
DX: H93.11 Tinnitus, right ear (principal); E03.9 Hypothyroidism, unspecified; E83.51 Hypocalcemia; Z79.899 Other long term (current) drug therapy
CPT/HCPCS: 36415; 80048; 80076; 82330; 83735; 84075; 84443; 85027; 93005; 93010; 96365; 99283; J0610

== ENCOUNTER 2020-04-01 23:03 | Emergency (ER) | payer SELFPAY ==
[2020-04-02 01:55] VITALS: BP 119/76
[2020-04-02] MEDS ORDERED: KETOROLAC 30 MG/1 ML INJ IV ONE (02:51)
[2020-04-02] MEDS ORDERED: dexAMETHasone 20 MG/5 ML VIAL IV ONE (02:51)
[2020-04-02 03:22] LABS: Basophils # (Auto) 0.2 K/mm3 (0.0-0.1); Basophils % (Auto) 2.3 % (0.0-1.8); Eosinophils # (Auto) 0.3 K/mm3 (0.0-0.4); Eosinophils % (Auto) 3.7 % (0.0-4.3); Hematocrit 33.1 % (30.3-42.9); Hemoglobin 11.6 gm/dl (10.1-14.3); Lymphocytes # (Auto) 2.7 K/mm3 (1.2-5.4); Lymphocytes % (Auto) 39.3 % (13.4-35.0); Mean Corpuscular HGB Conc 35 % (30-34); Mean Corpuscular Volume 85 fl (79-97); Monocytes # (Auto) 0.6 K/mm3 (0.0-0.8); Monocytes % (Auto) 9.5 % (0.0-7.3); Platelet Count 334 K/mm3 (140-440); Red Blood Count 3.88 M/mm3 (3.65-5.03); Red Cell Distribution Width 15.5 % (13.2-15.2)
[2020-04-02 03:33] LABS: INR 1.09 (0.87-1.13)
[2020-04-02 03:46] LABS: Alanine Aminotransferase 8 units/L (7-56); Albumin 4.2 g/dL (3.9-5); BUN/Creatinine Ratio 12; Blood Urea Nitrogen 11 mg/dL (7-17); Calcium 7.7 mg/dL (8.4-10.2); Hemolysis Index 3
--- NOTE | 2020-04-02 05:41 | Vascular Lab Report ---
VL venous duplex LE BILAT INDICATION / CLINICAL INFORMATION: Bilateral LE Pain and swelling, worse left thigh. COMPARISON: None available. FINDINGS: No evidence of deep vein thrombosis in either leg. IMPRESSION: 1. Negative study. Signer Name: Rory Sena MD Signed: 04/02/2020 5:37 AM Workstation Name: [id number]
--- NOTE | 2020-04-02 06:44 | Emergency Department Report ---
ED Extremity Problem HPI - General Chief complaint: Extremity Problem,Nontraumatic Stated complaint: LUMP ON LEFT LEG/BURNING PAIN Source: patient Mode of arrival: Ambulatory Limitations: No Limitations - History of Present Illness Initial comments: Patient is a 35-year-old white female with a history of chronic hypothyroidism and chronic hypocalcemia who presents to the ED with complaint of acute onset persistent bilateral thigh ecchymosis rashes with pain on the left thigh for the last 1 week. Patient states that the left thigh pain has been persistent especially worse in the last 4 days. Patient also states that although she has a history of hypothyroidism, she is noncompliant with her Synthroid having ran out of this medication for over 3 months and has not taken it and suspects that her hypothyroid condition is worsened. Patient denies traumatic injury, chest pain, shortness of breath, dizziness, syncope, fever, chills, nausea, vomiting, back pain, numbness and tingling or weakness of lower extremities bilaterally. MD Complaint: extremity pain (left thigh), extremity swelling (left thigh swollen lymph nodes), other (left leg bruises) -: Sudden, week(s) (1) Location: left, lower extremity, other (left thigh) History of Same: No -: Yes myalgia, Yes arthralgia, No fever, No associated dyspnea, No associated chest pain Radiation: none Severity scale (0 -10): 3 Quality: aching, sharp, constant Consistency: constant Improves with: nothing Worsens with: weight bearing, walking, palpation Associated Symptoms: denies other symptoms, arthralgias, rash (ecchymosis of left leg). denies: chest pain, shortness of breath, fever, myalgias - Related Data Previous Rx's Medication Instructions Recorded Last Taken Type Famotidine [Pepcid] 20 mg PO BID #60 tablet 01/23/17 Unknown Rx HYDROcodone/APAP 5-325 [[place] 1 each PO Q6HR PRN #20 tablet 01/23/17 Unknown Rx 5-325 mg TAB] Levothyroxine Sodium [Synthroid] 125 mcg PO DAILY #7 tablet 11/09/17 Unknown Rx Levothyroxine Sodium [Synthroid] 200 mcg PO QDAY #30 tablet 12/10/17 Unknown Rx Levothyroxine [Synthroid] 25 mcg PO QAM #30 tablet 04/28/19 Unknown Rx Levothyroxine [Synthroid] 150 mcg PO QAM #30 tablet 04/28/19 Unknown Rx Calcium Carbonate [Calcium 600MG 3 tab PO TID #300 tablet 04/02/20 Unknown Rx TAB] Cyclobenzaprine [Flexeril] 10 mg PO TID PRN #21 tablet 04/02/20 Unknown Rx Ibuprofen [Motrin] 800 mg PO Q8HR PRN #30 tablet 04/02/20 Unknown Rx Levothyroxine Sodium [Synthroid] 200 mcg PO DAILY #30 tablet 04/02/20 Unknown Rx Allergies Allergy/AdvReac Type Severity Reaction Status Date / Time No Known Allergies Allergy Verified 11/28/15 11:08 ED Review of Systems ROS: Stated complaint: LUMP ON LEFT LEG/BURNING PAIN Other details as noted in HPI Constitutional: denies: chills, fever Eyes: denies: eye pain, eye discharge, vision change ENT: denies: ear pain, throat pain Respiratory: denies: cough, shortness of breath, wheezing Cardiovascular: denies: chest pain, palpitations Endocrine: no symptoms reported Gastrointestinal: denies: abdominal pain, nausea, diarrhea Genitourinary: denies: urgency, dysuria, discharge Musculoskeletal: arthralgia (Bilateral thigh pain), myalgia. denies: back pain, joint swelling Skin: change in color (Multiple lower extremity mild skin bruises bilaterally). denies: rash, lesions Neurological: denies: headache, weakness, paresthesias Psychiatric: denies: anxiety, depression Hematological/Lymphatic: denies: easy bleeding, easy bruising ED Past Medical Hx - Past Medical History Hx Congestive Heart Failure: No Hx Diabetes: No Hx Asthma: No Hx COPD: No Additional medical history: Thyroid tumor: Hypothyroidism: Hypocalcemia - Surgical History Additional Surgical History: , Parathyroidectomy THYROIDECTOMY - Social History Smoking Status: Never Smoker Substance Use Type: Marijuana - Medications Home Medications: Home Medications Medication Instructions Recorded Confirmed Last Taken Type Famotidine [Pepcid] 20 mg PO BID #60 tablet 01/23/17 Unknown Rx HYDROcodone/APAP 5-325 [[place] 1 each PO Q6HR PRN #20 tablet 01/23/17 Unknown Rx 5-325 mg TAB] Levothyroxine Sodium [Synthroid] 125 mcg PO DAILY #7 tablet 11/09/17 Unknown Rx Levothyroxine Sodium [Synthroid] 200 mcg PO QDAY #30 tablet 12/10/17 Unknown Rx Levothyroxine [Synthroid] 25 mcg PO QAM #30 tablet 04/28/19 Unknown Rx Levothyroxine [Synthroid] 150 mcg PO QAM #30 tablet 04/28/19 Unknown Rx Calcium Carbonate [Calcium 600MG 3 tab PO TID #300 tablet 04/02/20 Unknown Rx TAB] Cyclobenzaprine [Flexeril] 10 mg PO TID PRN #21 tablet 04/02/20 Unknown Rx Ibuprofen [Motrin] 800 mg PO Q8HR PRN #30 tablet 04/02/20 Unknown Rx Levothyroxine Sodium [Synthroid] 200 mcg PO DAILY #30 tablet 04/02/20 Unknown Rx ED Physical Exam - General Limitations: No Limitations General appearance: alert, in no apparent distress - Head Head exam: Present: atraumatic, normocephalic, normal inspection - Eye Eye exam: Present: normal appearance, PERRL, EOMI Pupils: Present: normal accommodation - ENT ENT exam: Present: normal exam, normal orophraynx, mucous membranes moist, TM's normal bilaterally, normal external ear exam - Neck Neck exam: Present: normal inspection, full ROM - Respiratory Respiratory exam: Present: normal lung sounds bilaterally. Absent: respiratory distress, wheezes, chest wall tenderness, accessory muscle use, decreased breath sounds, prolonged expiratory - Cardiovascular Cardiovascular Exam: Present: regular rate, normal rhythm, normal heart sounds. Absent: systolic murmur, diastolic murmur, rubs, gallop - GI/Abdominal GI/Abdominal exam: Present: soft, normal bowel sounds. Absent: tenderness, guarding, hyperactive bowel sounds, hypoactive bowel sounds - Extremities Exam Extremities exam: Present: normal inspection, full ROM, tenderness (Palpable mild left thigh tenderness with a palpable small mass in the mid thigh), normal capillary refill - Back Exam Back exam: Present: normal inspection, full ROM. Absent: tenderness, CVA tenderness (R), CVA tenderness (L), muscle spasm, paraspinal tenderness, vertebral tenderness - Neurological Exam Neurological exam: Present: alert, oriented X3, CN II-XII intact, normal gait, reflexes normal - Psychiatric Psychiatric exam: Present: normal affect, normal mood - Skin Skin exam: Present: warm, dry, intact, normal color, ecchymosis (Mildly diffuse lower extremity ecchymotic skin lesions bilaterally). Absent: rash ED Course Vital Signs 04/01/20 23:50 Temperature 98.8 F Pulse Rate 99 H Respiratory 15 Rate Blood Pressure 119/76 O2 Sat by Pulse 96 Oximetry ED Medical Decision Making - Lab Data Result diagrams: 04/02/20 03:12 04/02/20 03:12 - Radiology Data Radiology results: report reviewed, image reviewed Findings [facility] [address] [place] [address] Vascular Lab Report Signed Patient: GARRY JIMENEZ MR#: [id number] : 1985 Acct:[id number] Age/Sex: 35 / F ADM Date: 04/01/20 Loc: ED Attending Dr: Ordering Physician: ANOOP MORA Date of Service: 04/02/20 Procedure(s): VL venous duplex LE BILAT Accession Number(s): [id number] cc: ANOOP MORA VL venous duplex LE BILAT INDICATION / CLINICAL INFORMATION: Bilateral LE Pain and swelling, worse left thigh. COMPARISON: None available. FINDINGS: No evidence of deep vein thrombosis in either leg. IMPRESSION: 1. Negative study. Signer Name: Rory Sena MD Signed: 04/02/2020 5:37 AM Workstation Name: [id number] Transcribed By: TM Dictated By: Rory Sena MD Electronically Authenticated By: Rory Sena MD Signed Date/Time: 04/02/20536 DD/ 5 TD/TT: - Medical Decision Making This is a 35-year-old white female with a history of chronic hypothyroidism and chronic hypocalcemia who presents to the ED with complaint of acute onset persistent bilateral thigh ecchymosis rashes with pain on the left thigh for the last 1 week. Patient states that the left thigh pain has been persistent especially worse in the last 4 days. Patient also states that although she has a history of hypothyroidism, she is noncompliant with her Synthroid having ran out of this medication for over 3 months and has not taken it and suspects that her hypothyroid condition is worsened. In the ED, patient is alert and oriented x3 and is not in distress. Lab test results were reviewed and showed mild hypocalcemia of 7.7 mg/dL and TSH level of 93.970. Bilateral lower extremity Doppler ultrasound showed no sonographic evidence of DVT bilaterally. Patient was treated for pain in the ED and on reevaluation, patient's pain is well controlled medication. Patient was discharged home on pain medications, muscle relaxants and also given a refill of her Synthroid 200 mcg daily, and was advis ed to follow-up with her primary care physician in 7 to 10 days for reevaluation or return to the ED immediately if symptoms get worse. - Differential Diagnosis Muscle strain; muscle spasm; leg contusion; DVT; hypothyroidism Critical care attestation.: If time is entered above; I have spent that time in minutes in the direct care of this critically ill patient, excluding procedure time. ED Disposition Clinical Impression: Muscle spasm of left lower extremity Muscle strain of left lower extremity Qualifiers: Encounter type: initial encounter Qualified Code(s): S86.912A - Strain of unspecified muscle(s) and tendon(s) at lower leg level, left leg, initial encounter Hypothyroidism Qualifiers: Hypothyroidism type: other Qualified Code(s): E03.8 - Other specified hypothyroidism Disposition: TO HOME OR SELFCARE Is pt being admited?: No Does the pt Need Aspirin: No Condition: Stable Instructions: Muscle Strain (ED), Hypothyroidism (ED) Additional Instructions: All lab test results were reviewed and showed mild hypocalcemia, and significantly elevated TSH consistent with hypothyroidism. The bilateral lower extremity Doppler ultrasound showed no sonographic evidence of DVT. Therefore take medications as advised, follow-up with your primary care physician in 7 to 10 days for reevaluation or return to the ED immediately if symptoms get worse. Prescriptions: Calcium Carbonate [Calcium 600MG TAB] 3 tab PO TID #300 tablet Cyclobenzaprine [Flexeril] 10 mg PO TID PRN #21 tablet PRN Reason: Muscle Spasm Ibuprofen [Motrin] 800 mg PO Q8HR PRN #30 tablet PRN Reason: Pain , Severe (7-10) Levothyroxine Sodium [Synthroid] 200 mcg PO DAILY #30 tablet Referrals: [facility] [Provider Group] - 7-10 days Forms: Work/School Release Form(ED) Time of Disposition: 06:41 Print Language: GABONESE
== END 2020-04-02 06:50 | disposition home or self-care (01) ==
LOC: ED 23:03
DX: S86.912A Strain of unspecified muscle(s) and tendon(s) at lower leg level, left leg, initial encounter (principal); E03.9 Hypothyroidism, unspecified; M62.838 Other muscle spasm; F12.90 Cannabis use, unspecified, uncomplicated; Z79.899 Other long term (current) drug therapy; Z98.890 Other specified postprocedural states; X58.XXXA Exposure to other specified factors, initial encounter; Y93.89 Activity, other specified; Y92.89 Other specified places as the place of occurrence of the external cause; Y99.8 Other external cause status
CPT/HCPCS: 36415; 80053; 84443; 84703; 85025; 85610; 85730; 93970; 96374; 96375; 99284; J1100; J1885

== ENCOUNTER 2020-06-17 23:19 | Emergency (ER) | payer SELFPAY ==
[2020-06-18 02:10] VITALS: BP 118/76
[2020-06-18] MEDS ORDERED: HYDROcodone/ACETAMINOPHEN 5-325 MG TAB PO ONE (03:23)
[2020-06-18] MEDS ORDERED: DIPHtheria,PERTUSSIS(ACELL),TETANUS VACCINE/PF 0.5 ML VIAL IM ONE (03:23)
--- NOTE | 2020-06-18 03:35 | Emergency Department Report ---
- General Chief Complaint: Wound/Laceration Stated Complaint: CUT ON RT WRIST Time Seen by Provider: 06/18/20 03:24 Source: patient Mode of arrival: Ambulatory Limitations: No Limitations - History of Present Illness Initial Comments: Patient is a 35-year-old white female who presents for right lateral wrist puncture wound. States she was washing dishes and cut her wrist on broken bone. Denies foreign body sensation. There is no nerve muscle or tendon damage noted. Bleeding was controlled via direct pressure at home. Patient denies numbness or tingling. There is minimal swelling. No obvious deformity. Pain rated at 4/10. Last tetanus states 3 months ago but not sure. - Related Data Previous Rx's Medication Instructions Recorded Last Taken Type Famotidine [Pepcid] 20 mg PO BID #60 tablet 01/23/17 Unknown Rx HYDROcodone/APAP 5-325 [[place] 1 each PO Q6HR PRN #20 tablet 01/23/17 Unknown Rx 5-325 mg TAB] Levothyroxine Sodium [Synthroid] 125 mcg PO DAILY #7 tablet 11/09/17 Unknown Rx Levothyroxine Sodium [Synthroid] 200 mcg PO QDAY #30 tablet 12/10/17 Unknown Rx Levothyroxine [Synthroid] 25 mcg PO QAM #30 tablet 04/28/19 Unknown Rx Levothyroxine [Synthroid] 150 mcg PO QAM #30 tablet 04/28/19 Unknown Rx Calcium Carbonate [Calcium 600MG 3 tab PO TID #300 tablet 04/02/20 Unknown Rx TAB] Cyclobenzaprine [Flexeril] 10 mg PO TID PRN #21 tablet 04/02/20 Unknown Rx Ibuprofen [Motrin] 800 mg PO Q8HR PRN #30 tablet 04/02/20 Unknown Rx Levothyroxine Sodium [Synthroid] 200 mcg PO DAILY #30 tablet 04/02/20 Unknown Rx Ibuprofen [Motrin 800 MG tab] 800 mg PO Q8HR PRN #30 tablet 06/18/20 Unknown Rx Allergies Allergy/AdvReac Type Severity Reaction Status Date / Time No Known Allergies Allergy Verified 11/28/15 11:08 ED Review of Systems ROS: Stated complaint: CUT ON RT WRIST Other details as noted in HPI Constitutional: denies: chills, fever Eyes: denies: eye pain, eye discharge, vision change ENT: denies: ear pain, throat pain Respiratory: denies: cough, shortness of breath, wheezing Cardiovascular: denies: chest pain, palpitations Endocrine: no symptoms reported Gastrointestinal: denies: abdominal pain, nausea, diarrhea Genitourinary: denies: urgency, dysuria, discharge Musculoskeletal: denies: back pain, joint swelling, arthralgia Skin: other (laceration right wrist ) Neurological: denies: headache, weakness, paresthesias Psychiatric: denies: anxiety, depression Hematological/Lymphatic: denies: easy bleeding, easy bruising ED Past Medical Hx - Past Medical History Previous Medical History?: Yes Hx Congestive Heart Failure: No Hx Diabetes: No Hx Asthma: No Hx COPD: No Additional medical history: Thyroid tumor: Hypothyroidism: Hypocalcemia - Surgical History Past Surgical History?: Yes Additional Surgical History: , Parathyroidectomy THYROIDECTOMY - Social History Smoking Status: Current Some Day Smoker Substance Use Type: None - Medications Home Medications: Home Medications Medication Instructions Recorded Confirmed Last Taken Type Famotidine [Pepcid] 20 mg PO BID #60 tablet 01/23/17 Unknown Rx HYDROcodone/APAP 5-325 [[place] 1 each PO Q6HR PRN #20 tablet 01/23/17 Unknown Rx 5-325 mg TAB] Levothyroxine Sodium [Synthroid] 125 mcg PO DAILY #7 tablet 11/09/17 Unknown Rx Levothyroxine Sodium [Synthroid] 200 mcg PO QDAY #30 tablet 12/10/17 Unknown Rx Levothyroxine [Synthroid] 25 mcg PO QAM #30 tablet 04/28/19 Unknown Rx Levothyroxine [Synthroid] 150 mcg PO QAM #30 tablet 04/28/19 Unknown Rx Calcium Carbonate [Calcium 600MG 3 tab PO TID #300 tablet 04/02/20 Unknown Rx TAB] Cyclobenzaprine [Flexeril] 10 mg PO TID PRN #21 tablet 04/02/20 Unknown Rx Ibuprofen [Motrin] 800 mg PO Q8HR PRN #30 tablet 04/02/20 Unknown Rx Levothyroxine Sodium [Synthroid] 200 mcg PO DAILY #30 tablet 04/02/20 Unknown Rx Ibuprofen [Motrin 800 MG tab] 800 mg PO Q8HR PRN #30 tablet 06/18/20 Unknown Rx ED Physical Exam - General Limitations: No Limitations General appearance: alert, in no apparent distress - Head Head exam: Present: atraumatic, normocephalic - Eye Eye exam: Present: normal appearance - ENT ENT exam: Present: mucous membranes moist - Neck Neck exam: Present: normal inspection - Respiratory Respiratory exam: Present: normal lung sounds bilaterally. Absent: respiratory distress - Cardiovascular Cardiovascular Exam: Present: regular rate, normal rhythm. Absent: systolic murmur, diastolic murmur, rubs, gallop - GI/Abdominal GI/Abdominal exam: Present: soft, normal bowel sounds - Extremities Exam Extremities exam: Present: normal inspection, full ROM, joint swelling - Expanded Upper Extremity Exam Right Hand Wrist exam: Present: full ROM, tenderness (right lateral wrist laceration puncture wound less than 1 cm), swelling, laceration. Absent: abrasion, ecchymosis, deformity, crepidus, dislocation, erythema, amputation, nail avulsion, subungual hematoma Neuro motor exam: Present: wrist extension intact, thumb opposition intact, thumb IP flexion intact, thumb adduction intact, fingers 2-5 abduction intact Neurosensory exam: Present: radial nerve intact Vascular: Present: normal capillary refill, radial pulse - Back Exam Back exam: Present: normal inspection, full ROM. Absent: tenderness - Neurological Exam Neurological exam: Present: alert, oriented X3, CN II-XII intact, normal gait, reflexes normal. Absent: motor sensory deficit - Expanded Neurological Exam Expanded Patient oriented to: Present: person, place, time Speech: Present: fluid speech Motor strength exam: RUE: 5, LUE: 5, RLE: 5, LLE: 5 Best Eye Response (Keyanna): (4) open spontaneously Best Motor Response (Keyanna): (6) obeys commands Best Verbal Response (Keyanna): (5) oriented [place]anna Total: 15 - Psychiatric Psychiatric exam: Present: normal affect, normal mood - Skin Skin exam: Present: warm, dry, intact, normal color. Absent: rash ED Course Vital Signs 06/17/20 06/18/20 06/18/20 23:58 02:05 03:33 Temperature 99.0 F 98.0 F Pulse Rate 115 H 88 Respiratory 16 18 18 Rate Blood Pressure 106/75 Blood Pressure 118/76 [Left] O2 Sat by Pulse 96 98 Oximetry - Laceration /Wound Repair Right Anterior Medial Wrist Wound Location: upper extremity (right anterior medial wrist puncture wound, no foreign body noted via xray, no muscle nerve or tendon damage rom intact and unrestricted, distal pulses intact +2, station gateman <3 sec) Wound Length (cm): 1 Wound's Depth, Shape: superficial Wound Explored: clean Irrigated w/ Saline (ccs): 10 Betadine Prep?: Yes Wound Debrided: none required Wound Repaired With: Steri-strips, Dermabond Sterile Dressing Applied?: No (dermabond /steristrip applied ) Progress: Right anterior wrist puncture wound, site cleaned with Betadine solution, site irrigated with 10 cc sterile saline, wound closed with Dermabond and Steri- strip x1, all bleeding is controlled, range of motion remains intact there is no nerve tendon or muscle damage. Patient given wound care instructions verbalized understanding of same, including follow-up with PCP in 2 days for wound check. pt tolerated procedure with minimal distress. ED Medical Decision Making - Radiology Data Radiology results: report reviewed, image reviewed Findings Reporting MD: Hermann De La Cruz Dictation Time: June 18, 2020 02:54 Grain Wafer Machine Operator: Not available Metrology Engineer Date: Right wrist-2 views INDICATION: laceration wrist. COMPARISON: None. IMPRESSION: No acute osseous or soft tissue abnormality. No significant DJD. Signer Name: Hermann De La Cruz MD Signed: 06/18/2020 2:54 AM Workstation Name: [id number] - Medical Decision Making Right wrist puncture wound closed see procedure note. Patient given follow-up appointment. Patient given wound care instructions verbalized understanding of same. Patient DC'd home with prescriptions. Patient will return to ED should symptoms worsen. Patient DC'd at this time in stable condition. Critical care attestation.: If time is entered above; I have spent that time in minutes in the direct care of this critically ill patient, excluding procedure time. ED Disposition Clinical Impression: Laceration of wrist Qualifiers: Encounter type: initial encounter Laterality: right Qualified Code(s): S61.511A - Laceration without foreign body of right wrist, initial encounter Disposition: DC-01 TO HOME OR SELFCARE Is pt being admited?: No Does the pt Need Aspirin: No Condition: Stable Instructions: Sutures, Watkins, or Adhesive Wound Closure Prescriptions: Ibuprofen [Motrin 800 MG tab] 800 mg PO Q8HR PRN #30 tablet PRN Reason: pain Referrals: NANCY DENIS MD [Staff Physician] - 3-5 Days Forms: Work/School Release Form(ED) Time of Disposition: 04:09
--- NOTE | 2020-06-18 03:58 | XRay Report ---
Right wrist-2 views INDICATION: laceration wrist. COMPARISON: None. IMPRESSION: No acute osseous or soft tissue abnormality. No significant DJD. Signer Name: Hermann De La Cruz MD Signed: 06/18/2020 3:54 AM Workstation Name: [id number]
== END 2020-06-18 04:17 | disposition home or self-care (01) ==
LOC: ED 23:19
DX: S61.511A Laceration without foreign body of right wrist, initial encounter (principal); E03.9 Hypothyroidism, unspecified; F17.200 Nicotine dependence, unspecified, uncomplicated; Z79.899 Other long term (current) drug therapy; Z98.890 Other specified postprocedural states; W45.8XXA Other foreign body or object entering through skin, initial encounter; Y93.89 Activity, other specified; Y92.099 Unspecified place in other non-institutional residence as the place of occurrence of the external cause; Y99.8 Other external cause status
CPT/HCPCS: 90715; 96372

== ENCOUNTER 2021-05-11 12:53 | Emergency (ER) | payer SELFPAY ==
[2021-05-11 13:17] VITALS: BP 108/71
[2021-05-11] MEDS ORDERED: SODIUM CHLORIDE 0.9% 1000 ML 1,000 ML IV ONE (13:27)
--- NOTE | 2021-05-11 13:28 | Emergency Department Report ---
ED Abdominal Pain HPI - General Chief Complaint: Abdominal Pain Stated Complaint: ABD PAIN/DIZZINES Time Seen by Provider: 05/11/21 13:26 Source: patient Mode of arrival: Ambulatory Limitations: No Limitations - History of Present Illness Initial Comments: Patient presents with multiple issues. She has been having abdominal pain over the last couple of days. Her menstrual cycle is about 6 or 7 days late. She is concerned for . She did a test at home that was positive. Pain is described as cramping and ache in the lower abdomen and mid abdomen. Today, she felt dizzy and lightheaded. She felt as though she was going to pass out. She became concerned that she could have had a tubal . Patient does state that she has been constipated lately. She initially thought the pain might be related to constipation. She is also concerned because she has a history of hypocalcemia and has not had her calcium level checked lately. This is secondary to thyroid surgery. Severity scale (0 -10): 5 - Related Data Previous Rx's Medication Instructions Recorded Last Taken Type Famotidine [Pepcid] 20 mg PO BID #60 tablet 01/23/17 Unknown Rx HYDROcodone/APAP 5-325 [[place] 1 each PO Q6HR PRN #20 tablet 01/23/17 Unknown Rx 5-325 mg TAB] Levothyroxine Sodium [Synthroid] 125 mcg PO DAILY #7 tablet 11/09/17 Unknown Rx Levothyroxine Sodium [Synthroid] 200 mcg PO QDAY #30 tablet 12/10/17 Unknown Rx Levothyroxine [Synthroid] 25 mcg PO QAM #30 tablet 04/28/19 Unknown Rx Levothyroxine [Synthroid] 150 mcg PO QAM #30 tablet 04/28/19 Unknown Rx Calcium Carbonate [Calcium 600MG 3 tab PO TID #300 tablet 04/02/20 Unknown Rx TAB] Cyclobenzaprine [Flexeril] 10 mg PO TID PRN #21 tablet 04/02/20 Unknown Rx Ibuprofen [Motrin] 800 mg PO Q8HR PRN #30 tablet 04/02/20 Unknown Rx Levothyroxine Sodium [Synthroid] 200 mcg PO DAILY #30 tablet 04/02/20 Unknown Rx Ibuprofen [Motrin 800 MG tab] 800 mg PO Q8HR PRN #30 tablet 06/18/20 Unknown Rx Allergies Allergy/AdvReac Type Severity Reaction Status Date / Time No Known Allergies Allergy Verified 11/28/15 11:08 ED Review of Systems ROS: Stated complaint: ABD PAIN/DIZZINES Other details as noted in HPI Comment: All other systems reviewed and negative Constitutional: denies: fever Eyes: denies: eye pain ENT: denies: throat pain Respiratory: denies: cough Cardiovascular: denies: chest pain Endocrine: denies: unexplained weight gain Gastrointestinal: as per HPI Genitourinary: as per HPI Musculoskeletal: denies: back pain Skin: denies: rash Neurological: denies: headache Hematological/Lymphatic: denies: easy bruising ED Past Medical Hx - Past Medical History Hx Congestive Heart Failure: No Hx Diabetes: No Hx Asthma: No Hx COPD: No Additional medical history: Thyroid tumor: Hypothyroidism: Hypocalcemia - Surgical History Additional Surgical History: , Parathyroidectomy THYROIDECTOMY - Family History Family history: no significant - Social History Smoking Status: Current Some Day Smoker (We discussed tobacco cessation x3 minutes) Substance Use Type: None - Medications Home Medications: Home Medications Medication Instructions Recorded Confirmed Last Taken Type Famotidine [Pepcid] 20 mg PO BID #60 tablet 01/23/17 Unknown Rx HYDROcodone/APAP 5-325 [[place] 1 each PO Q6HR PRN #20 tablet 01/23/17 Unknown Rx 5-325 mg TAB] Levothyroxine Sodium [Synthroid] 125 mcg PO DAILY #7 tablet 11/09/17 Unknown Rx Levothyroxine Sodium [Synthroid] 200 mcg PO QDAY #30 tablet 12/10/17 Unknown Rx Levothyroxine [Synthroid] 25 mcg PO QAM #30 tablet 04/28/19 Unknown Rx Levothyroxine [Synthroid] 150 mcg PO QAM #30 tablet 04/28/19 Unknown Rx Calcium Carbonate [Calcium 600MG 3 tab PO TID #300 tablet 04/02/20 Unknown Rx TAB] Cyclobenzaprine [Flexeril] 10 mg PO TID PRN #21 tablet 04/02/20 Unknown Rx Ibuprofen [Motrin] 800 mg PO Q8HR PRN #30 tablet 04/02/20 Unknown Rx Levothyroxine Sodium [Synthroid] 200 mcg PO DAILY #30 tablet 04/02/20 Unknown Rx Ibuprofen [Motrin 800 MG tab] 800 mg PO Q8HR PRN #30 tablet 06/18/20 Unknown Rx ED Physical Exam - General Limitations: No Limitations, Other (Pulse ox noted and normal) General appearance: alert, in no apparent distress - Head Head exam: Present: atraumatic, normocephalic - Eye Eye exam: Present: normal appearance, EOMI. Absent: scleral icterus - ENT ENT exam: Present: normal exam, normal orophraynx, normal external ear exam - Neck Neck exam: Present: normal inspection. Absent: meningismus - Respiratory Respiratory exam: Present: normal lung sounds bilaterally. Absent: respiratory distress - Cardiovascular Cardiovascular Exam: Present: regular rate, normal rhythm - GI/Abdominal GI/Abdominal exam: Present: soft. Absent: tenderness - Extremities Exam Extremities exam: Present: normal capillary refill - Back Exam Back exam: Absent: CVA tenderness (R), CVA tenderness (L) - Neurological Exam Neurological exam: Present: alert, oriented X3, CN II-XII intact, normal gait - Psychiatric Psychiatric exam: Present: normal affect, normal mood - Skin Skin exam: Present: warm, dry ED Course Vital Signs 05/11/21 13:16 Temperature 98.9 F Pulse Rate 94 H Respiratory 16 Rate Blood Pressure 108/71 [Left] O2 Sat by Pulse 98 Oximetry - Reevaluation(s) Reevaluation #1: 05/11/21 13:28 IV and labs ordered. Old records reviewed. Reevaluation #2: 05/11/21 16:48 Labs and ultrasound were noted. Patient was discharged. ED Medical Decision Making - Lab Data Result diagrams: 05/11/21 13:46 05/11/21 13:46 - Medical Decision Making Patient presented secondary to abdominal symptoms, concern for , and feeling lightheaded. Labs have been reviewed. She does not have profound anemia. She does not have any evidence of acute kidney injury or profound dehydration to account for her symptoms. She has an intrauterine , not an ectopic . This can be managed as an outpatient. She has been hydrated here. She had no urinary symptoms. There is no dysuria or frequency. She had not noticed hematuria. I do not believe her symptoms are related to urinary tract infection. She was referred to her PCP for recheck and further management. Critical Care Time: No Critical care attestation.: If time is entered above; I have spent that time in minutes in the direct care of this critically ill patient, excluding procedure time. ED Disposition Clinical Impression: Lightheaded, Abdominal pain affecting Disposition: 01 HOME / SELF CARE / HOMELESS Is pt being admited?: No Condition: Stable Instructions: Abdominal Pain (ED), Near-Syncope, Abdominal Pain, Adult, [id number], Abdominal Pain During Additional Instructions: Drink plenty water. Return for problems. Follow-up with your regular doctor for recheck and further management. Take vitamins at home. Stop smoking. Follow-up with your lead customer service representative. If you do not have a regular doctor, follow-up with the referral physicians. Referrals: PRIMARY CARE, [Referring] - 3-5 Days JOANNA CASTILLO MD [Staff Physician] - 3-5 Days JORDEN RITCHIE MD [Staff Physician] - 3-5 Days
[2021-05-11 14:20] LABS: Hematocrit 33.6 % (30.3-42.9); Mean Corpuscular HGB Conc 33 % (30-34); Mean Corpuscular Volume 84 fl (79-97); Platelet Count 406 K/mm3 (140-440); Red Cell Distribution Width 16.1 % (13.2-15.2)
[2021-05-11 14:39] LABS: Blood Urea Nitrogen 8 mg/dL (7-17); Calcium 7.6 mg/dL (8.4-10.2); Hemolysis Index 7
[2021-05-11 14:41] LABS: BUN/Creatinine Ratio 11
--- NOTE | 2021-05-11 16:08 | Ultrasound Report ---
FIRSTTRIMESTER OBSTETRIC ULTRASOUND ULTRASOUND OB TRANSVAGINAL HISTORY: Abdominal pain, pelvic pain, hyperemesis COMPARISON: None. TECHNIQUE: Routine transabdominal and transvaginal OB ultrasound performed. FINDINGS: Uterus: Mildly enlarged measuring 10.6 x 5.2 x 7.0 cm. Gestational Sac: Well-defined oval shape and intrauterine in location. Yolk Sac: Normal in appearance. Fetus/Embryo: [place]-rump length of 0.3 cm, corresponding to an estimated gestational age of 5 weeks 6 days. Embryonic/ anatomy is too small for evaluation. Embryonic/ cardiac activity: 103bpm Placenta: Too small for evaluation. Amniotic fluid volume: Subjectively appropriate for gestational age. Ovaries: The right ovary is normal in size and appearance with normal blood flow, measuring 3.7 x 2. 5 x 3.8 cm. The left ovary is normal in size and appearance with normal blood flow, measuring 3.4 x 1.6 x 2.2 cm. Hypoechoic space-occupying mass in the right ovary with peripheral vascularity is most likely the corpus luteum. Additional findings: None. IMPRESSION Viable single intrauterine as described. No acute abnormality is detected. Signer Name: Dejuan Lorenz Jr, MD Signed: 05/11/2021 4:04 PM Workstation Name: [id number]
== END 2021-05-11 17:10 | disposition home or self-care (01) ==
LOC: ED 12:53
DX: O26.899 Other specified pregnancy related conditions, unspecified trimester (principal); O99.330 Smoking (tobacco) complicating pregnancy, unspecified trimester; R10.9 Unspecified abdominal pain; R42 Dizziness and giddiness; Z3A.00 Weeks of gestation of pregnancy not specified
CPT/HCPCS: 36415; 76801; 76817; 80048; 84702; 84703; 85027; 96360; 99284; J7030; Q0162

== ENCOUNTER 2021-08-11 06:47 | Emergency (ER) | payer SELFPAY ==
[2021-08-11] MEDS ORDERED: dexAMETHasone 4 MG/ML VIAL IV ONE (08:14)
[2021-08-11 08:39] VITALS: BP 105/66
== END 2021-08-11 08:36 | disposition home or self-care (01) ==
LOC: ED 06:47
DX: O26.892 Other specified pregnancy related conditions, second trimester (principal); R21 Rash and other nonspecific skin eruption; Z91.19 Patient's noncompliance with other medical treatment and regimen; Z3A.19 19 weeks gestation of pregnancy
CPT/HCPCS: 96374; 99282; J1100

== ENCOUNTER 2021-10-20 23:06 | Outpatient (CLI) | payer MEDICAID ==
[2021-10-20 23:27] VITALS: BP 108/61
[2021-10-20] MEDS ORDERED: LACTATED RINGERS 500 ML IV ONE (23:32)
[2021-10-20] MEDS ORDERED: LACTATED RINGERS 1,000 ML IV ONE (23:55)
--- NOTE | 2021-10-21 01:09 | Ultrasound Report ---
ULTRASOUND OBSTETRIC COMPLETE INDICATION / CLINICAL INFORMATION: abd pain. Clinical Gestational Age (GA) in weeks.days: 28.6 TECHNIQUE: Transabdominal. COMPARISON: OB ultrasound from 05/11/2021. FINDINGS: NUMBER: Single PRESENTATION: cephalic PLACENTA: Not well visualized on submitted imaging. MATERNAL ADNEXA: No significant abnormality. AMNIOTIC FLUID VOLUME: normal AMNIOTIC FLUID INDEX (LON) in cm (if measured): 15.8 ANATOMY: Detailed evaluation of anatomy was not performed. MEASUREMENTS: - Biparietal Diameter = 7.37 cm = 29.4 weeks.days - Head Circumference = 26.09 cm = 28.3 weeks.days - Abdominal Circumference = 22.38 cm = 26.6 weeks.days - Femur Length = 4.14 cm = 23.3 weeks.days - Estimated Weight (in grams, if calculated): A 69 - Heart Rate (beats per minute): 149 ADDITIONAL FINDINGS: None. PERCENTILE ESTIMATED WEIGHT (if calculated): Not calculated AVERAGE ULTRASOUND AGE (AUA) in weeks.days = 27.1 IMPRESSION: 1. Single intrauterine with AUA of 27.1 weeks.days 2. No significant sonographic abnormality. Signer Name: Saran Whitfield MD Signed: 10/21/2021 1:05 AM Workstation Name: [id number]
== END 2021-10-21 01:06 | disposition home or self-care (01) ==
LOC: TRG 23:06 → APU 23:13 → TRG 10-21 01:06
PROVIDERS: ATTEND Obstetrics & Gynecology Gynecology
DX: O26.93 Pregnancy related conditions, unspecified, third trimester (principal); R10.9 Unspecified abdominal pain; Z3A.28 28 weeks gestation of pregnancy
CPT/HCPCS: 59025; 76816; J7120

== ENCOUNTER 2021-12-11 23:50 | Outpatient (CLI) | payer MEDICAID, OTHER ==
[2021-12-12 01:21] VITALS: BP 113/65
== END 2021-12-12 01:55 | disposition home or self-care (01) ==
LOC: TRG 23:50 → APU 23:53 → TRG 12-12 01:55
PROVIDERS: ATTEND Obstetrics & Gynecology
DX: O09.893 Supervision of other high risk pregnancies, third trimester (principal); Z3A.36 36 weeks gestation of pregnancy
CPT/HCPCS: 59025

== ENCOUNTER 2021-12-14 05:57 | Outpatient (CLI) | payer MEDICAID, OTHER ==
[2021-12-14] MEDS ORDERED: LACTATED RINGERS 500 ML IV ONE (06:31)
[2021-12-14] MEDS ORDERED: ACETAMINOPHEN 500 MG TAB PO ONE ×2 (06:41→11:02)
[2021-12-14 07:13] LABS: Basophils # (Auto) 0.1 K/mm3 (0.0-0.1); Basophils % (Auto) 0.6 % (0.0-1.8); Eosinophils # (Auto) 0.2 K/mm3 (0.0-0.4); Eosinophils % (Auto) 2.1 % (0.0-4.3); Hematocrit 27.1 % (30.3-42.9); Hemoglobin 9.1 gm/dl (10.1-14.3); Lymphocytes # (Auto) 0.8 K/mm3 (1.2-5.4); Lymphocytes % (Auto) 8.8 % (13.4-35.0); Mean Corpuscular HGB Conc 34 % (30-34); Mean Corpuscular Volume 88 fl (79-97); Monocytes % (Auto) 11.4 % (0.0-7.3); Platelet Count 217 K/mm3 (140-440); Red Blood Count 3.09 M/mm3 (3.65-5.03)
[2021-12-14 07:47] LABS: Bacteria,Urine 2+ /HPF (Negative); Mucus,Urine FEW /HPF
[2021-12-14 08:07] LABS: Bilirubin,Urine Negative (Negative); Color,Urine Yellow (Yellow)
[2021-12-14 08:08] LABS: Blood,Urine Negative (Negative)
[2021-12-14 08:09] LABS: Urobilinogen,Urine < 2.0 mg/dL (<2.0)
--- NOTE | 2021-12-14 09:11 | Event Note ---
Date: 12/14/21 grand multiparous pt at 36.5wks, with positive covid test and CTX done. Pt was febrile at 101.2 and wbc wnl at 9.1 and pt with asymptomatic anemia at 9.1 as well.
--- NOTE | 2021-12-14 10:08 | XRay Report ---
CHEST 1 VIEW 12/14/2021 9:01 AM INDICATION / CLINICAL INFORMATION: febrile morbidity. COMPARISON: None available. FINDINGS: SUPPORT DEVICES: None. HEART / MEDIASTINUM: No significant abnormality. LUNGS / PLEURA: No significant pulmonary or pleural abnormality. No pneumothorax. ADDITIONAL FINDINGS: No significant additional findings. IMPRESSION: 1. No acute findings. Signer Name: Soren Conde MD Signed: 12/14/2021 10:03 AM Workstation Name: [id number]
[2021-12-14 11:05] LABS: Alanine Aminotransferase 17 units/L (7-56); Blood Urea Nitrogen 3 mg/dL (7-17); Calcium 7.4 mg/dL (8.4-10.2); Hemolysis Index 5
--- NOTE | 2021-12-14 11:09 | Ultrasound Report ---
US OB limited, US OB BPP wo non-stress INDICATION / CLINICAL INFORMATION: Covid positive+ at 36.5wks, need LON. COMPARISON: 10/20/2021 FINDINGS: BREATHING MOVEMENT = 2 GROSS BODY MOVEMENT = 2 TONE = 2 QUALITATIVE AMNIOTIC FLUID VOLUME = 2 TOTAL BIOPHYSICAL SCORE = 8/8 AMNIOTIC FLUID INDEX (cm) = 13.4 PRESENTATION: Cephalic. HEART RATE (beats per minute): 150 IMPRESSION: 1. Viable intrauterine . No significant abnormality. 2. biophysical profile = 02/01 3. Amniotic fluid index measures 13.4 cm, within normal limits. Signer Name: Thiago Baxter MD Signed: 12/14/2021 11:05 AM Workstation Name: [id number]
[2021-12-14 11:24] LABS: BUN/Creatinine Ratio 4
[2021-12-14] MEDS ORDERED: POTASSIUM CHLORIDE ER 20 MEQ TAB PO ONE (12:59)
== END 2021-12-14 17:30 | disposition home or self-care (01) ==
LOC: TRG 05:57 → APU 06:07 → TRG 17:30
PROVIDERS: ATTEND Obstetrics & Gynecology
DX: O98.513 Other viral diseases complicating pregnancy, third trimester (principal); U07.1 COVID-19; O26.893 Other specified pregnancy related conditions, third trimester; M54.50 Low back pain, unspecified; R10.9 Unspecified abdominal pain; O09.523 Supervision of elderly multigravida, third trimester; O99.013 Anemia complicating pregnancy, third trimester; D64.9 Anemia, unspecified; O99.353 Diseases of the nervous system complicating pregnancy, third trimester; G43.909 Migraine, unspecified, not intractable, without status migrainosus; O99.283 Endocrine, nutritional and metabolic diseases complicating pregnancy, third trimester; E03.9 Hypothyroidism, unspecified; O99.613 Diseases of the digestive system complicating pregnancy, third trimester; K21.9 Gastro-esophageal reflux disease without esophagitis; Z3A.36 36 weeks gestation of pregnancy
CPT/HCPCS: 36415; 59025; 71045; 76815; 76819; 80053; 81001; 85025; 87086; J7120; U0003; 96360